=== PATIENT | female | born 1965 | race Caucasian/White ===

== ENCOUNTER → 2022-03-31 | Outpatient (CLI) | payer BC, OTHER ==
[2022-03-31 13:12] VITALS: BP 129/67; PULSE 88; TEMP 98.3; BMI 52.7
[2022-03-31 18:45] LABS: HCT 37.8 % (37.2-46.3); MCH 28.5 pg (27.0-32.0); MCHC 31.7 g/dL (32.0-37.0); MCV 89.8 fL (80.0-97.0); Mean Platelet Volume 10.1 fL (9.5-12.2); NRBC Per 100 WBC 0 /100 WBCS (0.0-0.0); Platelet Count 216 X 10*3/uL (140-440); RBC 4.21 X 10*6/uL (4.10-5.20); RDW 13.3 % (11.5-14.5); WBC 4.88 X 10*3/uL (4.50-10.00)
[2022-03-31 19:06] LABS: African American GFR (CKD) 99.9 (60.0-200.0); Albumin 4.3 g/dL (3.8-4.9); Albumin/Globulin Ratio 1.86 (1.60-3.17); Anion Gap 14.1 mmol/L (10.00-18.00); BUN/Creat Ratio 13.88 Ratio (12.00-20.00); Blood Urea Nitrogen 10.7 mg/dL (9.0-27.0); Calcium 9.2 mg/dL (8.7-10.3); Carbon Dioxide 24.4 mmol/L (20.0-27.5); Globulin 2.3 g/dL (1.6-3.3); Non-African American GFR(CKD) 86.2 (60.0-200.0); Potassium 3.6 mmol/L (3.5-5.5); Total Bilirubin 0.6 mg/dL (0.30-1.20); Total Protein 6.6 g/dL (6.2-8.2)
== END | disposition home or self-care (01) ==
LOC: BARWHC3 12:47
PROVIDERS: ATTEND Surgery
DX: E66.01 Morbid (severe) obesity due to excess calories (principal); E88.81 Metabolic syndrome and other insulin resistance; E55.9 Vitamin D deficiency, unspecified
CPT/HCPCS: 80053; 82306; 82607; 82746; 83036; 84425; 85027; 99202

== ENCOUNTER 2022-04-21 11:43 | Day surgery (SDC) | payer BC ==
[~2022-04-21 11:43] MED LIST: LACTATED RINGERS 1,000 ML IV SCH; LIDOCAINE 1% (10MG/ML) FOR IV START INTRADERMA PRN
[2022-04-21 12:05] VITALS: RESP 16; TEMP 96.8
[2022-04-21 12:24] LABS: Glucose,Whole Blood 108 mg/dL (70-110)
[2022-04-21] MEDS ORDERED: LIDOCAINE 2% INJ 20 MG/ML (2 ML VIAL) ONE (13:07)
[2022-04-21] MEDS ORDERED: PROPOFOL 10 MG/ML 20 ML VIAL IV ONE (13:07)
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
--- NOTE | 2022-04-21 13:22 | P.OP ---
Date of Procedure: 04/21/22 Preoperative Diagnosis: Morbid obesity GERD Postoperative Diagnosis: Gastritis Procedure(s) Performed: EGD Anesthesia: MAC Surgeon: Sincere Armstrong Pathology: other (antrum) Disposition: PACU Description of Procedure: Endoscopy table in the lateral position. He received IV sedation. The gastroscope placed oropharynx passed in the esophagus into the stomach. Scope was then placed through the pylorus. The first and second portion duodenum appeared normal. Scope was then brought back the antrum and this was mildly inflamed. A biopsies performed. The scope was then retroflexed and the remainder the stomach appeared normal. The GE junction was at 40 cm. The distal esophagus. Normal. The proximal esophagus appeared normal. Scope withdrawn for patient.
[2022-04-21 13:35] VITALS: BP 96/63; PULSE 65
== END 2022-04-21 13:55 | disposition home or self-care (01) ==
LOC: ORWHC2ENDO 11:43
PROVIDERS: ATTEND Surgery
DX: K21.9 Gastro-esophageal reflux disease without esophagitis (principal); K29.50 Unspecified chronic gastritis without bleeding; E66.01 Morbid (severe) obesity due to excess calories; Z68.43 Body mass index [BMI] 50.0-59.9, adult; E11.9 Type 2 diabetes mellitus without complications; E78.5 Hyperlipidemia, unspecified; I10 Essential (primary) hypertension; G47.33 Obstructive sleep apnea (adult) (pediatric); M19.012 Primary osteoarthritis, left shoulder; Z87.891 Personal history of nicotine dependence; Z87.442 Personal history of urinary calculi; Z90.49 Acquired absence of other specified parts of digestive tract; Z79.899 Other long term (current) drug therapy; Z79.84 Long term (current) use of oral hypoglycemic drugs
CPT/HCPCS: 88305; 43239; J2704; J2001

== ENCOUNTER → 2022-04-28 | Outpatient (CLI) | payer BC ==
[2022-04-28 14:28] VITALS: BP 113/79; PULSE 90; TEMP 98.3; BMI 52.0
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
== END | disposition home or self-care (01) ==
LOC: BARWHC3 13:51
PROVIDERS: ATTEND Surgery
DX: E66.01 Morbid (severe) obesity due to excess calories (principal); Z68.43 Body mass index [BMI] 50.0-59.9, adult
CPT/HCPCS: 99211

== ENCOUNTER → 2022-05-26 | Outpatient (CLI) | payer BC ==
[2022-05-26 10:50] VITALS: BMI 53.1
== END | disposition home or self-care (01) ==
LOC: BARWHC3 08:38
PROVIDERS: ATTEND Surgery
DX: E66.01 Morbid (severe) obesity due to excess calories (principal); Z71.3 Dietary counseling and surveillance
CPT/HCPCS: 97804

== ENCOUNTER → 2022-08-04 | Outpatient (CLI) | payer BC ==
[2022-08-04 13:23] VITALS: BP 109/68; PULSE 75; RESP 16; TEMP 98.1; BMI 52.4
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
== END ==
LOC: BARWHC3 12:57
PROVIDERS: ATTEND Surgery
DX: E66.01 Morbid (severe) obesity due to excess calories (principal); Z68.43 Body mass index [BMI] 50.0-59.9, adult
CPT/HCPCS: 99211

== ENCOUNTER → 2022-08-18 | Day surgery (SDC) | payer BC ==
[2022-08-13 13:12] VITALS: BMI 55.9
[~2022-08-18] MED LIST changes: +DEXAMETHASONE SOD PHOSPHATE 4 MG/ML 1 ML VIAL IV ONE; +ENOXAPARIN 40 MG/0.4 ML SYRINGE SQ PRN; +HYDROmorphone 0.5 MG/0.5 ML SYRINGE IVP PRN; -LIDOCAINE 1% (10MG/ML) FOR IV START INTRADERMA PRN; +ONDANSETRON 4 MG/2 ML VIAL IVP ONE; +ceFAZolin 3 GM in SODIUM CHLORIDE 0.9% 100 ML IVPB PRN
[2022-08-18 09:18] VITALS: BP 144/74; PULSE 78; RESP 18; TEMP 97.3
[2022-08-18 09:33] LABS: Glucose,Whole Blood 114 mg/dL (70-110)
== END ==
LOC: OR 08:42
PROVIDERS: ATTEND Surgery
DX: Z53.9 Procedure and treatment not carried out, unspecified reason (principal); E66.01 Morbid (severe) obesity due to excess calories
CPT/HCPCS: J1100; J2405; J1650

== ENCOUNTER 2022-08-19 05:51 | Observation (INO) | payer BC ==
[~2022-08-19 05:51] MED LIST changes: -DEXAMETHASONE SOD PHOSPHATE 4 MG/ML 1 ML VIAL IV ONE; -HYDROmorphone 0.5 MG/0.5 ML SYRINGE IVP PRN; -LACTATED RINGERS 1,000 ML IV SCH; -ONDANSETRON 4 MG/2 ML VIAL IVP ONE
[2022-08-19] MEDS ORDERED: ONDANSETRON 4 MG/2 ML VIAL ONE (06:29)
[2022-08-19] MEDS ORDERED: LIDOCAINE 1% (10MG/ML) FOR IV START INTRADERMA ONE (06:38)
[2022-08-19] MEDS ORDERED: LACTATED RINGERS 1,000 ML IV ONE (06:38)
[2022-08-19] MEDS ORDERED: ONDANSETRON 4 MG/2 ML VIAL IVP ONE (06:39)
[2022-08-19] MEDS ORDERED: DEXAMETHASONE SOD PHOSPHATE 4 MG/ML 1 ML VIAL IV ONE (06:40)
[2022-08-19 06:42] LABS: Glucose,Whole Blood 135 mg/dL (70-110)
[2022-08-19] MEDS ORDERED: KETAMINE 10 MG/ML 20 ML VIAL ONE (07:00)
[2022-08-19] MEDS ORDERED: MIDAZOLAM 2 MG/2 ML VIAL ONE (07:00)
[2022-08-19] MEDS ORDERED: KETOROLAC 15 MG/ML 1 ML VIAL ONE (07:00)
[2022-08-19] MEDS ORDERED: NEOSTIGMINE 1 MG/ML 10 ML VIAL ONE (07:00)
[2022-08-19] MEDS ORDERED: ROCURONIUM 10 MG/ML (5 ML VIAL) IV ONE (07:00)
[2022-08-19] MEDS ORDERED: fentaNYL (PF) 50 MCG/ML 2 ML AMP ONE (07:00)
[2022-08-19] MEDS ORDERED: PROPOFOL 10 MG/ML 20 ML VIAL IV ONE (07:00)
[2022-08-19] MEDS ORDERED: SUCCINYLCHOLINE CHLORIDE 200 MG/10 ML VIAL IV ONE (07:00)
[2022-08-19] MEDS ORDERED: GLYCOPYRROLATE 0.2 MG/ML 2 ML VIAL ONE (07:00)
[2022-08-19] MEDS ORDERED: BUPIVACAIN-EPI 0.25%-1:200,000 30 ML VIAL SQ ONE (07:24)
--- NOTE | 2022-08-19 08:02 | P.OP ---
Date of Procedure: 08/19/22 Preoperative Diagnosis: Morbid obesity, BMI 55 Postoperative Diagnosis: Morbid obesity, BMI 55 Procedure(s) Performed: Laparoscopic sleeve gastrectomy Anesthesia: CIERA Surgeon: Sincere Armstrong Estimated Blood Loss (ml): 10 Pathology: other (Stomach) Condition: stable Disposition: PACU Description of Procedure: The patient was placed on the operating room table in the supine position. She received general anesthesia and then was placed in dorsal lithotomy position. Her abdomen was prepped and draped in sterile fashion. The skin incision sites were anesthetized 1% local Xylocaine. And then the skin was incised with an 11 blade in the left lateral position. Using a blade less trocar under direct visualization the peritoneal cavity was entered. The abdomen was insufflated and then a 5 mm laparoscope was placed into the peritoneal cavity. A 5 mm trocar was placed in the right epigastric, and right lateral position. A 15 mm trocar was placed in the supra-umbilical position and another 5 mm trocar was placed in the left lateral position. The left lateral lobe of the liver was retracted. The stomach was visualized. The greater curvature of the stomach was then dissected using the Harmonic scissors. The dissection occurred approximately 5 cm from the pylorus to the level of the left josep. There was no hiatal hernia seen. At this point a 40-Amharic bougie dilator was placed the oropharynx and passed into the esophagus and into the stomach by the ENTRY LEVEL INSTALLATION TECHNICIAN. The sleeve gastrectomy was performed by using the powered echelon stapler with a seam guard buttress material. Sequential firings of the stapler were performed. The gastric remnant was then brought out through the 15 mm trocar site. The dilator was withdrawn. And a orogastric tube was replaced into the stomach. The stomach was insufflated with 200 mL of methylene blue normal saline. There was no evidence of extravasation. The abdomen was irrigated there is no bleeding seen. The Raciel-Noel device was used to close the 15 mm trocar with 0 Vicryl. Skin was closed with interrupted 3-0 Monocryl sutures once the trochars withdrawn. Dermabond dressing was applied. Patient was sent to recovery in stable condition.
[2022-08-19] MEDS ORDERED: HYOSCYAMINE ORAL DROPS 1.875 MG/15 ML BOTTLE PO PRN (08:04)
[2022-08-19] MEDS ORDERED: diphenhydrAMINE 50 MG/ML 1 ML VIAL IVP PRN (08:04)
[2022-08-19] MEDS ORDERED: ACETAMINOPHEN IV (For NPO) 1,000 MG in EMPTY BAG 1 BAG IVPB ONE (08:04)
[2022-08-19] MEDS ORDERED: NALOXONE 0.4 MG/ML 1 ML VIAL IV PRN (08:04)
[2022-08-19] MEDS ORDERED: ONDANSETRON 4 MG/2 ML VIAL IVP PRN (08:04)
[2022-08-19] MEDS ORDERED: SIMETHICONE 40 MG/0.6 ML DROPS 2,000 MG/30 ML BOTTLE PO PRN (08:04)
[2022-08-19] MEDS ORDERED: ACETAMINOPHEN ORAL SUSP 160 MG/5 ML CUP PO PRN (08:04)
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
[2022-08-19] MEDS: HYDROmorphone 0.5 MG/0.5 ML SYRINGE IVP PRN ×2 (09:18→15:53)
[2022-08-19 11:46] LABS: Glucose,Whole Blood 164 mg/dL (70-110)
[2022-08-19] MEDS: ALBUTEROL NEBULIZED 2.5 MG/3 ML INHALATION SCH ×3 (12:01→19:03)
[2022-08-19] MEDS: KETOROLAC 15 MG/ML 1 ML VIAL IVP SCH ×2 (13:16→17:39)
[2022-08-19] MEDS: 0.9% NACL WITH KCL 20 MEQ/L 1,000 ML IV SCH ×3 (13:20→21:33)
[2022-08-19] MEDS ORDERED: ceFAZolin 3 GM in SODIUM CHLORIDE 0.9% 100 ML IVPB SCH (15:00)
[2022-08-19 20:44] LABS: Glucose,Whole Blood 173 mg/dL (70-110)
[2022-08-19] MEDS: ENOXAPARIN 40 MG/0.4 ML SYRINGE SQ SCH (21:33)
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
[2022-08-20] MEDS: KETOROLAC 15 MG/ML 1 ML VIAL IVP SCH ×2 (01:46→05:47)
[2022-08-20 06:04] LABS: Glucose,Whole Blood 131 mg/dL (70-110)
[2022-08-20 07:30] VITALS: BP 116/65; RESP 18; TEMP 98.3
[2022-08-20] MEDS ORDERED: 1: THIAMINE 100 MG, FOLIC ACID 1 MG in 0.9% NACL WITH KCL 20 MEQ/L 1,000 ML 2: 0.9% NAC IVPB SCH (08:00)
[2022-08-20] MEDS: ENOXAPARIN 40 MG/0.4 ML SYRINGE SQ SCH (08:35)
[2022-08-20] MEDS: ALBUTEROL NEBULIZED 2.5 MG/3 ML INHALATION SCH ×2 (09:06→11:51)
[2022-08-20] MEDS ORDERED: FAMOTIDINE 20 MG/2 ML VIAL IV SCH (09:30)
[2022-08-20 11:22] LABS: Basophils # (A) 0.01 X 10*3/uL (0.00-0.10); Basophils % (A) 0.1 %; Eosinophils # (A) 0.01 X 10*3/uL (0.04-0.35); Eosinophils % (A) 0.1 %; HGB 11.2 g/dL (12.0-15.0); Immature Grans, Automated 0.3 %; Lymphocytes # (A) 1.97 X 10*3/uL (0.90-5.00); Lymphocytes % (A) 24.6 %; MCH 29.2 pg (27.0-32.0); MCHC 31.1 g/dL (32.0-37.0); Mean Platelet Volume 9.4 fL (9.5-12.2); Monocytes # (A) 0.41 X 10*3/uL (0.20-1.00); Monocytes % (A) 5.1 %; NRBC Per 100 WBC 0 /100 WBCS (0.0-0.0); Neutrophils # (A) 5.58 X 10*3/uL (1.80-7.70); Neutrophils % (A) 69.8 %; Platelet Count 234 X 10*3/uL (140-440); RBC 3.83 X 10*6/uL (4.10-5.20); RDW 14.5 % (11.5-14.5)
--- NOTE | 2022-08-20 11:35 | P.DS ---
Providers Date of admission: 08/19/22 18:14 Expected date of discharge: 08/20/22 Attending physician: Sincere Armstrong Consults: 08/19/22 08:04 Consult Physician Routine Consulting Provider: Nathaly London Consult Reason/Comments: med manage Do you want consulting provider notified?: Yes Primary care physician: Sonya Hsieh Hospital Course: Discharge diagnosis 1. Morbid obesity status post laparoscopic sleeve gastrectomy Hospital course This is a 56-year-old female with a known history of morbid obesity. She is status post laparoscopic sleeve gastrectomy. Patient tolerated surgery well. Her pain is controlled. She is tolerating diet. She's having flatus. She has been up and ambulating. She is urinating without difficulty. She's afebrile. She is stable for discharge. Please refer to chart for any further details. Physician Diesel Locomotive Engineer note has been reviewed by physician. Signing provider agrees with the documented findings, assessment, and plan of care. Patient Condition at Discharge: Stable Plan - Discharge Summary Discharge Rx Participant: No New Discharge Prescriptions: New bisacodyL [Dulcolax] 5 mg PO DAILY PRN #10 tab PRN Reason: Constipation Simethicone 40 mg/0.6 ml Drops [Mylicon Drops] 40 mg PO PCHS PRN #30 ml PRN Reason: Gas Ondansetron Odt [Zofran Odt] 4 mg PO Q8HR PRN #9 tab PRN Reason: Nausea HYDROcodone/APAP 5-325MG [[place] 5-325] 1 tab PO Q6HR PRN 2 Days #5 tab PRN Reason: Pain Omeprazole [PriLOSEC] 40 mg PO DAILY #30 cap Continue metFORMIN HCL [Glucophage] 500 mg PO BID Multivitamin [Multivitamins Adult Gummies] 1 each PO DAILY Simvastatin 40 mg PO DAILY Semaglutide [Ozempic] 1 mg SQ SWAN Discontinued Lisinopril-Hctz 10-12.5 mg [Zestoretic 10-12.5] 1 tab PO DAILY Ibuprofen [Motrin] 400 mg PO Q6HR PRN PRN Reason: Pain Discharge Medication List Simvastatin 40 mg PO DAILY 03/31/22 [History] metFORMIN HCL [Glucophage] 500 mg PO BID 03/31/22 [History] Semaglutide [Ozempic] 1 mg SQ SWAN 04/18/22 [History] Multivitamin [Multivitamins Adult Gummies] 1 each PO DAILY 08/13/22 [History] HYDROcodone/APAP 5-325MG [[place] 5-325] 1 tab PO Q6HR PRN 2 Days #5 tab 08/20/22 [Rx] Omeprazole [PriLOSEC] 40 mg PO DAILY #30 cap 08/20/22 [Rx] Ondansetron Odt [Zofran Odt] 4 mg PO Q8HR PRN #9 tab 08/20/22 [Rx] Simethicone 40 mg/0.6 ml Drops [Mylicon Drops] 40 mg PO PCHS PRN #30 ml 08/20/22 [Rx] bisacodyL [Dulcolax] 5 mg PO DAILY PRN #10 tab 08/20/22 [Rx] [place] [facility]s[place]Ref[place] [facility] [place] 1 Week Sonya Hsieh DO [Primary Care Provider] - 3 Days Activity/Diet/Wound Care/Special Instructions: No driving while taking [place] No lifting over 10 pounds Shower daily. No soaking or tub baths for 2 weeks Very light activity until you are reevaluated at your follow up appointment with your surgeon No straws or carbonated beverages Hold blood pressure medication until seen by PCP Discharge Disposition: HOME SELF-CARE
[2022-08-20 12:00] VITALS: PULSE 70
[2022-08-20 12:07] LABS: African American GFR (CKD) 82.8 (60.0-200.0); BUN/Creat Ratio 15.56 Ratio (12.00-20.00); Calcium 8.5 mg/dL (8.7-10.3); Carbon Dioxide 24.2 mmol/L (20.0-27.5); Chloride 101 mmol/L (96-109); Glucose 121 mg/dL (70-110); Non-African American GFR(CKD) 71.5 (60.0-200.0); Phosphorus 3.7 mg/dL (2.4-5.1); Potassium 4.2 mmol/L (3.5-5.5); Sodium 139 mmol/L (135-145)
[2022-08-20 12:20] LABS: Glucose,Whole Blood 136 mg/dL (70-110)
[2022-08-20 12:57] VITALS: BMI 54.7
== END 2022-08-20 13:02 | disposition home or self-care (01) ==
LOC: OR 05:51 → 4SSUR 08:04 → OR 17:57 → 4SSUR 18:14
PROVIDERS: ADMIT Surgery; ATTEND Surgery
DX: E66.01 Morbid (severe) obesity due to excess calories (principal); K29.50 Unspecified chronic gastritis without bleeding; E11.9 Type 2 diabetes mellitus without complications; E78.5 Hyperlipidemia, unspecified; I10 Essential (primary) hypertension; R00.1 Bradycardia, unspecified; Z90.49 Acquired absence of other specified parts of digestive tract; Z68.43 Body mass index [BMI] 50.0-59.9, adult; Z87.891 Personal history of nicotine dependence; Z79.899 Other long term (current) drug therapy; Z79.84 Long term (current) use of oral hypoglycemic drugs
CPT/HCPCS: 43775; 96376; 96372 ×2; 96374; 94640 ×4; 94760; 93005; 97161; 97166; 80048; 84443; 83735; 84100; 85025; 88307; G0378 ×2; J2250; J0330; J1100; J2710; J0690; J2405; J1650 ×2; J3010; J0131; J1885 ×2; J2704; J1170

== ENCOUNTER → 2022-09-01 | Outpatient (CLI) | payer BC ==
[2022-09-01 13:11] VITALS: BP 137/80; PULSE 85; TEMP 98.1; BMI 48.5
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
== END ==
LOC: BARWHC3 12:47
PROVIDERS: ATTEND Surgery
DX: Z71.3 Dietary counseling and surveillance (principal); E66.01 Morbid (severe) obesity due to excess calories; Z68.42 Body mass index [BMI] 45.0-49.9, adult
CPT/HCPCS: 97802; 99211

== ENCOUNTER → 2022-09-22 | Outpatient (CLI) | payer BC ==
[2022-09-22 14:30] VITALS: BP 120/80; PULSE 60; TEMP 98.3; BMI 46.0
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
[2022-09-22 22:52] LABS: HCT 40.5 % (37.2-46.3); HGB 13.4 g/dL (12.0-15.0); MCH 29.1 pg (27.0-32.0); MCHC 33.1 g/dL (32.0-37.0); MCV 87.9 fL (80.0-97.0); Mean Platelet Volume 11.4 fL (9.5-12.2); NRBC Per 100 WBC 0 /100 WBCS (0.0-0.0); Platelet Count 196 X 10*3/uL (140-440); RBC 4.61 X 10*6/uL (4.10-5.20); RDW 14.6 % (11.5-14.5); WBC 4.66 X 10*3/uL (4.50-10.00)
[2022-09-22 23:18] LABS: % Iron Saturation 13.78 (12.00-45.00); African American GFR (CKD) 93.8 (60.0-200.0); Albumin 4.1 g/dL (3.8-4.9); Albumin/Globulin Ratio 1.77 (1.60-3.17); BUN/Creat Ratio 6.23 Ratio (12.00-20.00); Blood Urea Nitrogen 5.1 mg/dL (9.0-27.0); Calcium 9.5 mg/dL (8.7-10.3); Carbon Dioxide 24.2 mmol/L (20.0-27.5); Globulin 2.3 g/dL (1.6-3.3); Magnesium 1.9 mg/dL (1.5-2.4); Potassium 3.6 mmol/L (3.5-5.5); Total Bilirubin 0.7 mg/dL (0.30-1.20); Total Protein 6.4 g/dL (6.2-8.2)
== END ==
LOC: BARWHC3 13:52
PROVIDERS: ATTEND Surgery
DX: Z48.815 Encounter for surgical aftercare following surgery on the digestive system (principal); E66.01 Morbid (severe) obesity due to excess calories; Z98.84 Bariatric surgery status; E11.9 Type 2 diabetes mellitus without complications; E78.5 Hyperlipidemia, unspecified; I10 Essential (primary) hypertension; M19.90 Unspecified osteoarthritis, unspecified site; Z68.42 Body mass index [BMI] 45.0-49.9, adult
CPT/HCPCS: 80053; 82306; 82607; 82746; 83540; 83550; 83735; 84255; 84425; 84443; 84590; 84630; 85027; 97803; 99211

== ENCOUNTER 2022-10-05 11:36 | Emergency (ER) | payer BC ==
[2022-10-05 11:42] VITALS: TEMP 98.4
[2022-10-05] MEDS ORDERED: PANTOPRAZOLE 40 MG/10 ML VIAL IVP STA (12:24)
[2022-10-05] MEDS ORDERED: IOPAMIDOL CONTRAST (ORAL USE) VIAL PO PRN (12:24)
[2022-10-05] MEDS ORDERED: ONDANSETRON 4 MG/2 ML VIAL IVP STA (12:24)
[2022-10-05] MEDS ORDERED: SODIUM CHLORIDE 0.9% 2,000 ML IV STA (12:24)
[2022-10-05] MEDS ORDERED: HYDROmorphone 0.5 MG/0.5 ML SYRINGE IVP STA (12:25)
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
[2022-10-05 12:49] LABS: Basophils % (A) 0 %; Eosinophils % (A) 0 %; HCT 41.1 % (34.0-46.0); Lymphocytes # (A) 0.9 k/uL (1.0-4.8); Lymphocytes % (A) 12 %; MCH 30.1 pg (25.0-35.0); MCHC 34.2 g/dL (31.0-37.0); MCV 88.1 fL (80.0-100.0); Mean Platelet Volume 8.4; Monocytes # (A) 0.2 k/uL (0-1.0); Monocytes % (A) 3 %; Neutrophils # (A) 6.2 k/uL (1.3-7.7); Neutrophils % (A) 83 %; Platelet Count 207 k/uL (150-450); RBC 4.66 m/uL (3.80-5.40); WBC 7.5 k/uL (3.8-10.6)
[2022-10-05 13:12] LABS: Albumin 4.5 g/dL (3.5-5.0); Calcium 9.4 mg/dL (8.4-10.2); Total Bilirubin 1.4 mg/dL (0.2-1.3); Total Protein 7.3 g/dL (6.3-8.2)
--- NOTE | 2022-10-05 13:54 | CT ---
EXAMINATION TYPE: CT abdomen pelvis w con CT DLP: 2218.7 mGycm, Automated exposure control for dose reduction was used. DATE OF EXAM: 10/05/2022 1:44 PM COMPARISON: None CLINICAL INDICATION:Female, 56 years old with history of abdominal pain; Abdominal pain TECHNIQUE: Axial CT of the abdomen and pelvis. Sagittal and coronal reformats were created on a [employer] workstation. Contrast used:100 ml mL of Isovue 300 with IV Contrast, Oral contrast used: with Oral Contrast FINDINGS: LOWER CHEST: Heart is mildly enlarged for size. ABDOMEN LIVER: Diffusely hypoattenuating parenchyma. GALLBLADDER AND BILE DUCTS: The gallbladder is surgically absent. PANCREAS: Unremarkable. SPLEEN: Unremarkable. ADRENAL GLANDS: Unremarkable. KIDNEYS AND URETERS: No evidence of hydronephrosis or renal calculus. The ureters are unremarkable. PELVIS BLADDER: Unremarkable REPRODUCTIVE: Unremarkable. ABDOMEN & PELVIS STOMACH AND BOWEL: No evidence of bowel obstruction. Surgical changes to the gastric lumen. Appendix is normal. PERITONEUM: No evidence of pneumoperitoneum or free fluid. VASCULATURE: No evidence of aortic aneurysm. Mild atherosclerosis of the arterial vasculature. Mild m ultilevel disc degeneration changes throughout the spine. MUSCULOSKELETAL: No acute osseous abnormalities LYMPH NODES: No gross evidence for lymphadenopathy. SOFT TISSUE/ABDOMINAL WALL: Small fat-containing umbilical hernia. IMPRESSION: 1. No evidence for acute intra-abdominal process. 2. Hepatic steatosis.
[2022-10-05] MEDS ORDERED: MAG HYDROX/AL HYDROX/SIMETH 30 ML, HYOSCYAMINE ELIXIR 10 ML, LIDOCAINE VISCOUS 2% 10 ML PO STA ×3 (14:13)
[2022-10-05] MEDS ORDERED: METOCLOPRAMIDE 5 MG/ML 2 ML VIAL IVP STA (14:14)
[2022-10-05] MEDS ORDERED: diphenhydrAMINE 50 MG/ML 1 ML VIAL IVP STA (14:14)
[2022-10-05 14:20] LABS: Appearance,Urine Clear (Clear); Bilirubin,Urine 1+ (Negative); Blood,Urine Negative (Negative); Color,Urine Yellow; Glucose,Urine (UA) Negative (Negative); Ketones,Urine 4+ (Negative); Leukocyte Esterase,Urine Negative (Negative); Mucus,Urine Few /hpf; Nitrite,Urine Negative (Negative); Protein,Urine 1+ (Negative); RBC,Urine 3 /hpf (0-5); Squamous Epithelial Cell,Urine 14 /hpf (0-4); WBC,Urine 2 /hpf (0-5)
[2022-10-05 14:46] LABS: Specific Gravity,Urine >1.050 (1.001-1.035)
[2022-10-05 15:31] VITALS: BP 138/71; PULSE 65; RESP 18
== END 2022-10-05 15:35 | disposition home or self-care (01) ==
LOC: EC 11:36
DX: Z98.84 Bariatric surgery status (principal); E86.0 Dehydration; R11.2 Nausea with vomiting, unspecified; E11.9 Type 2 diabetes mellitus without complications; I10 Essential (primary) hypertension; Z87.891 Personal history of nicotine dependence
CPT/HCPCS: 36415; 80053; 83605; 83690; 85025; 81001; 74177; 99284; 96374; 96375 ×4; 96361 ×2; J1200; J2765; J2405; C9113; J1170; Q9967

== ENCOUNTER 2022-10-06 09:02 | Inpatient (IN) | payer BC ==
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
[2022-10-06 09:45] LABS: Basophils % (A) 0 %; Eosinophils # (A) 0.1 k/uL (0-0.7); Eosinophils % (A) 1 %; HCT 40.6 % (34.0-46.0); HGB 13.5 gm/dL (11.4-16.0); Lymphocytes % (A) 14 %; MCH 29.7 pg (25.0-35.0); MCHC 33.4 g/dL (31.0-37.0); MCV 88.8 fL (80.0-100.0); Mean Platelet Volume 8.1; Monocytes # (A) 0.2 k/uL (0-1.0); Monocytes % (A) 2 %; Neutrophils # (A) 5.9 k/uL (1.3-7.7); Neutrophils % (A) 82 %; Platelet Count 188 k/uL (150-450); RBC 4.56 m/uL (3.80-5.40); RDW 14.7 % (11.5-15.5); WBC 7.1 k/uL (3.8-10.6)
[2022-10-06 10:11] LABS: ALT 89 U/L (4-34); AST 67 U/L (14-36); African American GFR (CKD) >90 (>60 ml/min/1.73 sqM); Albumin 4.1 g/dL (3.5-5.0); Alkaline Phosphatase 109 U/L (38-126); Anion Gap 13 mmol/L; Blood Urea Nitrogen 13 mg/dL (7-17); Calcium 8.8 mg/dL (8.4-10.2); Carbon Dioxide 23 mmol/L (22-30); Chloride 105 mmol/L (98-107); Glucose 169 mg/dL (74-99); Lipase 117 U/L (23-300); Non-African American GFR(CKD) 89 (>60 ml/min/1.73 sqM); Potassium 3.6 mmol/L (3.5-5.1); Sodium 141 mmol/L (137-145); Total Bilirubin 1.3 mg/dL (0.2-1.3); Total Protein 6.7 g/dL (6.3-8.2)
[2022-10-06] MEDS ORDERED: METOCLOPRAMIDE 5 MG/ML 2 ML VIAL IVP STA (10:17)
[2022-10-06] MEDS ORDERED: HYDROmorphone 0.5 MG/0.5 ML SYRINGE IVP STA (10:17)
[2022-10-06] MEDS ORDERED: diphenhydrAMINE 50 MG/ML 1 ML VIAL IVP STA (10:17)
[2022-10-06] MEDS ORDERED: SODIUM CHLORIDE 0.9% 2,000 ML IV ONE (10:17)
[2022-10-06] MEDS ORDERED: FAMOTIDINE 20 MG/2 ML VIAL IV STA (10:18)
[2022-10-06 10:49] LABS: Amorphous Sediment,Urine Rare /hpf; Appearance,Urine Cloudy (Clear); Bacteria,Urine Few /hpf; Bilirubin,Urine 1+ (Negative); Blood,Urine Negative (Negative); Color,Urine Yellow; Glucose,Urine (UA) Trace (Negative); Ketones,Urine 3+ (Negative); Leukocyte Esterase,Urine Small (Negative); Mucus,Urine Many /hpf; Nitrite,Urine Negative (Negative); Protein,Urine 2+ (Negative); RBC,Urine 2 /hpf (0-5); Specific Gravity,Urine 1.039 (1.001-1.035); Squamous Epithelial Cell,Urine 43 /hpf (0-4); WBC,Urine 12 /hpf (0-5)
[2022-10-06] MEDS ORDERED: NALOXONE 0.4 MG/ML 1 ML VIAL IV PRN ×2 (13:14→13:57)
[2022-10-06] MEDS: SODIUM CHLORIDE 0.9% 1,000 ML IV SCH (13:34)
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
--- NOTE | 2022-10-06 14:56 | XR ---
EXAMINATION TYPE: XR abdomen 1V DATE OF EXAM: 10/06/2022 COMPARISON: NONE HISTORY: Pain and vomiting TECHNIQUE: One view abdominal series FINDINGS: The osseous structures are intact. The bowel gas pattern is nonspecific. Lung bases are clear. Surg ical clips in the epigastrium. Degenerative changes lower lumbar spine. Contrast within bowel noted. IMPRESSION: 1. Nonspecific abdomen.
[2022-10-06] MEDS: ONDANSETRON 4 MG/2 ML VIAL IVP PRN (16:13)
[2022-10-06] MEDS: INSULIN ASPART (NovoLOG) 100 UNIT/ML VIAL SQ SCH ×2 (18:52→20:51)
[2022-10-06 20:35] LABS: Glucose,Whole Blood 125 mg/dL (70-110)
[2022-10-06] MEDS ORDERED: MORPHINE SULFATE 2 MG/ML SYRINGE IVP STA (20:47)
[2022-10-07] MEDS: SODIUM CHLORIDE 0.9% 1,000 ML IV SCH ×2 (00:02→16:52)
[2022-10-07] MEDS: ONDANSETRON 4 MG/2 ML VIAL IVP PRN ×3 (00:02→15:54)
[2022-10-07 06:09] LABS: Glucose,Whole Blood 124 mg/dL (70-110)
[2022-10-07] MEDS: INSULIN ASPART (NovoLOG) 100 UNIT/ML VIAL SQ SCH ×4 (06:11→20:53)
[2022-10-07 08:05] LABS: Basophils % (A) 0 %; Eosinophils % (A) 0 %; HCT 39.5 % (34.0-46.0); HGB 12.7 gm/dL (11.4-16.0); Hypochromasia Slight; Lymphocytes # (A) 1.1 k/uL (1.0-4.8); Lymphocytes % (A) 18 %; MCH 29.8 pg (25.0-35.0); MCHC 32.1 g/dL (31.0-37.0); MCV 92.8 fL (80.0-100.0); Mean Platelet Volume 8.8; Monocytes # (A) 0.3 k/uL (0-1.0); Monocytes % (A) 5 %; Neutrophils # (A) 4.3 k/uL (1.3-7.7); Neutrophils % (A) 76 %; Platelet Count 174 k/uL (150-450); RBC 4.26 m/uL (3.80-5.40); RDW 14.6 % (11.5-15.5); WBC 5.7 k/uL (3.8-10.6)
[2022-10-07 08:55] LABS: ALT 110 U/L (4-34); African American GFR (CKD) >90 (>60 ml/min/1.73 sqM); Anion Gap 7 mmol/L; Blood Urea Nitrogen 13 mg/dL (7-17); Calcium 8.4 mg/dL (8.4-10.2); Carbon Dioxide 29 mmol/L (22-30); Chloride 107 mmol/L (98-107); Glucose 125 mg/dL (74-99); Non-African American GFR(CKD) >90 (>60 ml/min/1.73 sqM); Sodium 143 mmol/L (137-145); Total Bilirubin 1.7 mg/dL (0.2-1.3); Total Protein 6.7 g/dL (6.3-8.2)
[2022-10-07 08:56] LABS: AST 98 U/L (14-36); Alkaline Phosphatase 94 U/L (38-126); Magnesium 2.3 mg/dL (1.6-2.3); Phosphorus 3.5 mg/dL (2.5-4.5); Potassium 4.5 mmol/L (3.5-5.1)
[2022-10-07] MEDS ORDERED: lisinopriL 5 MG TAB PO SCH (09:00)
[2022-10-07] MEDS: lisinopriL 10 MG TAB PO SCH (09:16)
[2022-10-07] MEDS: PANTOPRAZOLE 40 MG/10 ML VIAL IVP SCH (11:51)
[2022-10-07] MEDS: KETOROLAC 15 MG/ML 1 ML VIAL IVP SCH ×2 (11:51→17:59)
[2022-10-07] MEDS: ACETAMINOPHEN IV (For NPO) 1,000 MG in EMPTY BAG 1 BAG IVPB SCH ×2 (11:52→17:59)
[2022-10-07 11:54] LABS: Glucose,Whole Blood 121 mg/dL (70-110)
--- NOTE | 2022-10-07 11:54 | FL ---
EXAMINATION TYPE: FL UGI w esophagus DATE OF EXAM: 10/07/2022 LIMITED UGI: CLINICAL HISTORY: Gastric sleeve surgery roughly 7 weeks ago with increasing dysphagia over the last 1-2 weeks. Worsening nausea and vomiting along with abdominal pain. TECHNIQUE: Limited UGI is performed utilizing 20 oz of thin liquid barium. A total of 58 seconds of fluoroscopic time was utilized during procedure and 17 images obtained. COMPARISON: CT abdomen and pelvis from 2 days ago FINDINGS: Preprocedure driftman image redemonstrates surgical clips and sutures in the epigastric region from prior gastric sleeve surgery. Cholecystectomy clips are redemonstrated. The patient swallowed contrast with some difficulty due to nausea. Esophageal peristalsis and motili ty are within normal limits. There is good flow of contrast along the diaphragmatic hiatus into prox imal stomach and subsequent flow into gastric sleeve through proximal anastomosis. There is mild gloria y in flow from distal sleeve and anastomosis into pylorus and duodenal sweep. Patient showed nausea b ut no vomiting. There is no evidence of contrast extravasation to suggest leak. IMPRESSION: No evidence of leak or significant obstruction.
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
--- NOTE | 2022-10-07 15:38 | P.PN ---
Subjective Progress Note Date: 10/07/22 Patient seen and examined at bedside. Patient continues to have nausea and vomiting with epigastric pain. Patient denies chest pain shortness of breath. Awaiting surgery consultation. Objective - Vital Signs Vital signs: Vital Signs Temp 97.8 F 10/07/22 09:15 Pulse 41 L 10/07/22 11:55 Resp 17 10/07/22 11:55 BP 154/82 10/07/22 11:55 Pulse Ox 97 10/07/22 11:55 FiO2 Intake & Output 10/06/22 10/07/22 10/07/22 18:59 06:59 18:59 Intake Total 240 Balance 240 Weight 110.677 kg 110.677 kg Intake: Oral 240 Other: # Voids 2 - Exam General: [non toxic], [no distress], [appears at stated age] Derm: [warm], [dry] Head: [atraumatic], [normocephalic], [symmetric] Eyes: [EOMI], [no lid lag], [anicteric sclera] Mouth: [no lip lesion], [mucus membranes moist] Cardiovascular: [S1S2 reg], [no murmur], [positive posterior tibial pulse bilateral], Lungs: [CTA bilateral], [no rhonchi, no rales] , [no accessory muscle use] Abdominal: [soft], [ epigastric tender to palpation], [no guarding], [no appreciable organomegaly] Ext: [no gross muscle atrophy], [no edema], [no contractures] Neuro: [ CN II-XI grossly intact], [no focal neuro deficits] Psych: [Alert], [oriented], [appropriate affect] - Labs CBC & Chem 7: 10/07/22 06:04 10/07/22 06:04 Labs: Abnormal Lab Results - Last 24 Hours (Table) 10/06/22 10/07/22 10/07/22 Range/Units 20:33 06:04 06:07 Glucose 125 H (74-99) mg/dL POC Glucose (mg/dL) 125 H 124 H (70-110) mg/dL Total Bilirubin 1.7 H (0.2-1.3) mg/dL AST 98 H (14-36) U/L ALT 110 H (4-34) U/L 10/07/22 Range/Units 11:52 Glucose (74-99) mg/dL POC Glucose (mg/dL) 121 H (70-110) mg/dL Total Bilirubin (0.2-1.3) mg/dL AST (14-36) U/L ALT (4-34) U/L Microbiology - Last 24 Hours (Table) 10/06/22 10:23 Urine Culture - Final Urine,Voided Assessment and Plan Assessment: Sinus bradycardia Troponin negative, no heart history in the past Monitor on telemetry Likely sec to dehydration, give IV fluids Cardiology recommendations appreciated Intractable nausea and vomiting with recent gastric sleeve Nothing by mouth general surgery recommendations appreciated Zofran and reglan IV fluids Type 2 diabetes SSI Hold ozympic History of hypertension All stable Resume meds Admit to inpatient expected length of stay more than 2 midnights. Time with Patient: Greater than 30
[2022-10-07 16:49] LABS: Glucose,Whole Blood 125 mg/dL (70-110)
[2022-10-07 20:32] LABS: Glucose,Whole Blood 116 mg/dL (70-110)
[2022-10-07] MEDS: DEXAMETHASONE SOD PHOSPHATE 4 MG/ML 1 ML VIAL IVP SCH (20:55)
[2022-10-08] MEDS: ACETAMINOPHEN IV (For NPO) 1,000 MG in EMPTY BAG 1 BAG IVPB SCH ×2 (00:17→06:33)
[2022-10-08] MEDS: KETOROLAC 15 MG/ML 1 ML VIAL IVP SCH ×5 (00:18→23:28)
[2022-10-08] MEDS: ONDANSETRON 4 MG/2 ML VIAL IVP PRN ×4 (00:19→23:28)
[2022-10-08] MEDS: SODIUM CHLORIDE 0.9% 1,000 ML IV SCH ×2 (00:49→16:13)
[2022-10-08] MEDS: DEXAMETHASONE SOD PHOSPHATE 4 MG/ML 1 ML VIAL IVP SCH ×3 (04:30→20:32)
[2022-10-08] MEDS: INSULIN ASPART (NovoLOG) 100 UNIT/ML VIAL SQ SCH ×4 (06:31→20:30)
[2022-10-08 06:32] LABS: Glucose,Whole Blood 124 mg/dL (70-110)
[2022-10-08] MEDS: lisinopriL 10 MG TAB PO SCH (09:36)
[2022-10-08] MEDS: PANTOPRAZOLE 40 MG/10 ML VIAL IVP SCH ×2 (09:36→20:33)
[2022-10-08 09:45] LABS: Basophils % (A) 0 %; Eosinophils % (A) 0 %; HCT 37.2 % (34.0-46.0); HGB 12.4 gm/dL (11.4-16.0); Lymphocytes # (A) 0.8 k/uL (1.0-4.8); Lymphocytes % (A) 19 %; MCHC 33.4 g/dL (31.0-37.0); MCV 89.7 fL (80.0-100.0); Mean Platelet Volume 8.3; Monocytes # (A) 0.1 k/uL (0-1.0); Monocytes % (A) 3 %; Neutrophils # (A) 3.3 k/uL (1.3-7.7); Neutrophils % (A) 78 %; Platelet Count 133 k/uL (150-450); RBC 4.14 m/uL (3.80-5.40); RDW 14.5 % (11.5-15.5); WBC 4.2 k/uL (3.8-10.6)
[2022-10-08 09:59] LABS: ALT 153 U/L (4-34); AST 116 U/L (14-36); African American GFR (CKD) >90 (>60 ml/min/1.73 sqM); Albumin 3.5 g/dL (3.5-5.0); Alkaline Phosphatase 91 U/L (38-126); Anion Gap 7 mmol/L; Blood Urea Nitrogen 12 mg/dL (7-17); Calcium 8.1 mg/dL (8.4-10.2); Carbon Dioxide 25 mmol/L (22-30); Chloride 107 mmol/L (98-107); Glucose 127 mg/dL (74-99); Magnesium 2.3 mg/dL (1.6-2.3); Non-African American GFR(CKD) >90 (>60 ml/min/1.73 sqM); Potassium 3.7 mmol/L (3.5-5.1); Sodium 139 mmol/L (137-145); Total Bilirubin 1.9 mg/dL (0.2-1.3)
[2022-10-08 11:26] LABS: Glucose,Whole Blood 127 mg/dL (70-110)
--- NOTE | 2022-10-08 13:47 | P.PN ---
Subjective Progress Note Date: 10/08/22 Patient seen and examined at bedside. Patient continues to have epigastric pain with nausea. Patient denies chest pain or shortness of breath. Objective - Vital Signs Vital signs: Vital Signs Temp 98.1 F 10/08/22 11:17 Pulse 41 L 10/08/22 11:17 Resp 16 10/08/22 11:17 BP 148/79 10/08/22 11:17 Pulse Ox 97 10/08/22 11:17 FiO2 Intake & Output 10/07/22 10/08/22 10/08/22 18:59 06:59 18:59 Intake Total 480 Balance 480 Intake: Oral 480 Other: # Voids 3 1 - Exam General: [non toxic], [no distress], [appears at stated age] Derm: [warm], [dry] Head: [atraumatic], [normocephalic], [symmetric] Eyes: [EOMI], [no lid lag], [anicteric sclera] Mouth: [no lip lesion], [mucus membranes moist] Cardiovascular: [S1S2 reg], [no murmur], [positive posterior tibial pulse bilateral], Lungs: [CTA bilateral], [no rhonchi, no rales] , [no accessory muscle use] Abdominal: [soft], [ epigastric tender to palpation], [no guarding], [no appreciable organomegaly] Ext: [no gross muscle atrophy], [no edema], [no contractures] Neuro: [ CN II-XI grossly intact], [no focal neuro deficits] Psych: [Alert], [oriented], [appropriate affect]. - Labs CBC & Chem 7: 10/08/22 08:57 10/08/22 08:57 Labs: Abnormal Lab Results - Last 24 Hours (Table) 10/07/22 10/07/22 10/08/22 Range/Units 16:45 20:30 06:30 Plt Count (150-450) k/uL Lymphocytes # (1.0-4.8) k/uL Glucose (74-99) mg/dL POC Glucose (mg/dL) 125 H 116 H 124 H (70-110) mg/dL Calcium (8.4-10.2) mg/dL Total Bilirubin (0.2-1.3) mg/dL AST (14-36) U/L ALT (4-34) U/L Total Protein (6.3-8.2) g/dL 10/08/22 10/08/22 10/08/22 Range/Units 08:57 08:57 11:25 Plt Count 133 L (150-450) k/uL Lymphocytes # 0.8 L (1.0-4.8) k/uL Glucose 127 H (74-99) mg/dL POC Glucose (mg/dL) 127 H (70-110) mg/dL Calcium 8.1 L (8.4-10.2) mg/dL Total Bilirubin 1.9 H (0.2-1.3) mg/dL AST 116 H (14-36) U/L ALT 153 H (4-34) U/L Total Protein 6.0 L (6.3-8.2) g/dL Microbiology - Last 24 Hours (Table) 10/06/22 10:23 Urine Culture - Final Urine,Voided Assessment and Plan Assessment: Sinus bradycardia Troponin negative, no heart history in the past Monitor on telemetry Likely sec to dehydration, give IV fluids Cardiology recommendations appreciated Intractable nausea and vomiting with recent gastric sleeve Nothing by mouth general surgery recommendations appreciated Zofran and reglan IV fluids Type 2 diabetes SSI Hold ozympic History of hypertension All stable Resume meds Admit to inpatient expected length of stay more than 2 midnights
--- NOTE | 2022-10-08 14:12 | P.PN ---
Subjective Progress Note Date: 10/08/22 CHIEF COMPLAINT: Intractable nausea and vomiting HISTORY OF PRESENT ILLNESS: Patient continues to have dysphagia for nausea and vomiting. Computed tomography scan an esophagram showed no definite abnorma lities. Patient is currently on IV Protonix and Decadron with no improvement in her symptoms. She continues to have epigastric pain. Afebrile. Bradycardia, rate 41 WBC is 4.2 hgb 12.4 platelets 133 sodium 139 potassium 3.7 creatinine 0.6 magnesium is 2.3 total bili 1.9 AST 116 ALT 153 PHYSICAL EXAM: VITAL SIGNS: Reviewed. GENERAL: Well-developed in no acute distress. HEENT: No sclera icterus. Extraocular movements grossly intact. Moist buccal mucosa. Head is atraumatic, normocephalic. ABDOMEN: Soft. Nondistended. Epigastric tenderness: Alert and oriented. Cranial nerves II through XII grossly intact. ASSESSMENT: 1. Intractable nausea and vomiting with epigastric pain 2. Dehydration 3. Status post laparoscopic sleeve gastrectomy on 08/19/2022 4. Bradycardia evaluated by cardiology 5. Elevated LFTs with history of cholecystectomy and hepatic steatosis PLAN: -Further recommendations forthcoming per surgeon -Continue IV fluids -Continue antiemetics -IV Protonix increased to twice a day -Continue Decadron -Keep patient nothing by mouth except for ice chips Physician Comsec Manager note has been reviewed by physician. Signing provider agrees with the documented findings, assessment, and plan of care. I have personally seen and examined the patient, reviewed the WAIST PLEATER /PAs history, exam and MDM and agree with the assessment and plan as written. Based on total visit time, I have performed more than 50% of the visit. As above: Patient feels slightly better than yesterday. Continue Decadron IV. Begin full liquids to see if the consistency and weight of the food help some with her symptoms. Objective - Vital Signs Vital signs: Vital Signs Temp 98.1 F 10/08/22 11:17 Pulse 41 L 10/08/22 11:17 Resp 16 10/08/22 11:17 BP 148/79 10/08/22 11:17 Pulse Ox 97 10/08/22 11:17 FiO2 Intake & Output 10/07/22 10/08/22 10/08/22 18:59 06:59 18:59 Intake Total 480 Balance 480 Intake: Oral 480 Other: # Voids 3 1 - Labs CBC & Chem 7: 10/08/22 08:57 10/08/22 08:57 Labs: Abnormal Lab Results - Last 24 Hours (Table) 10/07/22 10/07/22 10/08/22 Range/Units 16:45 20:30 06:30 Plt Count (150-450) k/uL Lymphocytes # (1.0-4.8) k/uL Glucose (74-99) mg/dL POC Glucose (mg/dL) 125 H 116 H 124 H (70-110) mg/dL Calcium (8.4-10.2) mg/dL Total Bilirubin (0.2-1.3) mg/dL AST (14-36) U/L ALT (4-34) U/L Total Protein (6.3-8.2) g/dL 10/08/22 10/08/22 10/08/22 Range/Units 08:57 08:57 11:25 Plt Count 133 L (150-450) k/uL Lymphocytes # 0.8 L (1.0-4.8) k/uL Glucose 127 H (74-99) mg/dL POC Glucose (mg/dL) 127 H (70-110) mg/dL Calcium 8.1 L (8.4-10.2) mg/dL Total Bilirubin 1.9 H (0.2-1.3) mg/dL AST 116 H (14-36) U/L ALT 153 H (4-34) U/L Total Protein 6.0 L (6.3-8.2) g/dL Microbiology - Last 24 Hours (Table) 10/06/22 10:23 Urine Culture - Final Urine,Voided
[2022-10-08 16:41] LABS: Glucose,Whole Blood 121 mg/dL (70-110)
[2022-10-08 20:13] LABS: Glucose,Whole Blood 111 mg/dL (70-110)
[2022-10-09] MEDS: DEXAMETHASONE SOD PHOSPHATE 4 MG/ML 1 ML VIAL IVP SCH ×3 (04:02→20:42)
[2022-10-09] MEDS: SODIUM CHLORIDE 0.9% 1,000 ML IV SCH (04:02)
[2022-10-09 06:14] LABS: Glucose,Whole Blood 118 mg/dL (70-110)
[2022-10-09] MEDS: INSULIN ASPART (NovoLOG) 100 UNIT/ML VIAL SQ SCH ×4 (06:17→21:43)
[2022-10-09] MEDS: KETOROLAC 15 MG/ML 1 ML VIAL IVP SCH ×4 (06:19→23:08)
[2022-10-09] MEDS: ONDANSETRON 4 MG/2 ML VIAL IVP PRN ×3 (06:20→18:08)
[2022-10-09] MEDS: lisinopriL 10 MG TAB PO SCH (08:36)
[2022-10-09] MEDS: PANTOPRAZOLE 40 MG/10 ML VIAL IVP SCH ×2 (08:36→20:43)
[2022-10-09 09:01] LABS: Basophils % (A) 0 %; Eosinophils % (A) 1 %; HCT 37.3 % (34.0-46.0); HGB 12.3 gm/dL (11.4-16.0); Lymphocytes # (A) 0.8 k/uL (1.0-4.8); Lymphocytes % (A) 19 %; MCH 29.5 pg (25.0-35.0); MCV 89.5 fL (80.0-100.0); Mean Platelet Volume 9.2; Monocytes # (A) 0.2 k/uL (0-1.0); Monocytes % (A) 4 %; Neutrophils # (A) 3.4 k/uL (1.3-7.7); Neutrophils % (A) 76 %; Platelet Count 138 k/uL (150-450); RBC 4.17 m/uL (3.80-5.40); RDW 14.2 % (11.5-15.5); WBC 4.4 k/uL (3.8-10.6)
[2022-10-09 09:26] LABS: ALT 148 U/L (4-34); AST 80 U/L (14-36); African American GFR (CKD) >90 (>60 ml/min/1.73 sqM); Albumin 3.5 g/dL (3.5-5.0); Alkaline Phosphatase 88 U/L (38-126); Anion Gap 8 mmol/L; Blood Urea Nitrogen 12 mg/dL (7-17); Calcium 7.9 mg/dL (8.4-10.2); Carbon Dioxide 25 mmol/L (22-30); Chloride 102 mmol/L (98-107); Glucose 129 mg/dL (74-99); Non-African American GFR(CKD) >90 (>60 ml/min/1.73 sqM); Potassium 3.5 mmol/L (3.5-5.1); Sodium 135 mmol/L (137-145); Total Bilirubin 1.2 mg/dL (0.2-1.3); Total Protein 5.9 g/dL (6.3-8.2)
[2022-10-09 11:50] LABS: Glucose,Whole Blood 102 mg/dL (70-110)
[2022-10-09] MEDS ORDERED: POTASSIUM CHLORIDE 20 MEQ in WATER FOR INJECTION 1 100ML.BAG IVPB STA (13:44)
--- NOTE | 2022-10-09 13:45 | P.PN ---
Subjective Progress Note Date: 10/09/22 CHIEF COMPLAINT: Intractable nausea and vomiting HISTORY OF PRESENT ILLNESS: Patient continues to have dysphagia for nausea and vomiting. Computed tomography scan and esophagram showed no definite abnorm alities. Patient reports slight improvement in her symptoms. She is still having the vomiting and epigastric pain. She was able to eat about 4 bites of her oatmeal. She is having flatus. Denies any bowel movement. Afebrile. WBC is 4.4 Hgb 12.3 platelets 138 sodium was 135 potassium is 3.5 creatinine 0.68 total bilirubin 1.2 AST 80 ALT 148 LFTs are trending down PHYSICAL EXAM: VITAL SIGNS: Reviewed. GENERAL: Well-developed in no acute distress. HEENT: No sclera icterus. Extraocular movements grossly intact. Moist buccal mucosa. Head is atraumatic, normocephalic. ABDOMEN: Soft. Nondistended. Epigastric tenderness Neuro: Alert and oriented. Cranial nerves II through XII grossly intact. ASSESSMENT: 1. Intractable nausea and vomiting with epigastric pain 2. Dehydration 3. Status post laparoscopic sleeve gastrectomy on 08/19/2022 4. Bradycardia evaluated by cardiology 5. Elevated LFTs with history of cholecystectomy and hepatic steatosis. LFTs trending down 6. Hypokalemia PLAN: -Further recommendations forthcoming per surgeon regarding possible EGD -Continue IV fluids -Continue antiemetics -IV Protonix increased to twice a day -Continue Decadron -Continue full liquids, no carbonated beverages -Replace potassium Physician Opthalmic Tech note has been reviewed by physician. Signing provider agrees with the documented findings, assessment, and plan of care. Objective - Vital Signs Vital signs: Vital Signs Temp 97.7 F 10/09/22 12:25 Pulse 43 L 10/09/22 12:25 Resp 16 10/09/22 12:25 BP 144/60 10/09/22 12:25 Pulse Ox 99 10/09/22 12:25 FiO2 Intake & Output 10/08/22 10/09/22 10/09/22 18:59 06:59 18:59 Other: Voiding Method Toilet # Voids 1 1 2 - Labs CBC & Chem 7: 10/09/22 08:03 10/09/22 08:03 Labs: Abnormal Lab Results - Last 24 Hours (Table) 10/08/22 10/08/22 10/09/22 Range/Units 16:40 20:12 06:12 Plt Count (150-450) k/uL Lymphocytes # (1.0-4.8) k/uL Sodium (137-145) mmol/L Glucose (74-99) mg/dL POC Glucose (mg/dL) 121 H 111 H 118 H (70-110) mg/dL Calcium (8.4-10.2) mg/dL AST (14-36) U/L ALT (4-34) U/L Total Protein (6.3-8.2) g/dL 10/09/22 10/09/22 Range/Units 08:03 08:03 Plt Count 138 L (150-450) k/uL Lymphocytes # 0.8 L (1.0-4.8) k/uL Sodium 135 L (137-145) mmol/L Glucose 129 H (74-99) mg/dL POC Glucose (mg/dL) (70-110) mg/dL Calcium 7.9 L (8.4-10.2) mg/dL AST 80 H (14-36) U/L ALT 148 H (4-34) U/L Total Protein 5.9 L (6.3-8.2) g/dL Microbiology - Last 24 Hours (Table) 10/08/22 14:17 Urine Culture - Preliminary Urine,Voided
--- NOTE | 2022-10-09 15:20 | P.PN ---
Subjective Progress Note Date: 10/09/22 Patient seen and examined at bedside. Patient continues to have epigastric pain with nausea. Patient denies chest pain shortness of breath. Patient further denies fever or chills. Patient is going to have an EGD for further assessment. Objective - Vital Signs Vital signs: Vital Signs Temp 97.7 F 10/09/22 12:25 Pulse 43 L 10/09/22 12:25 Resp 16 10/09/22 12:25 BP 144/60 10/09/22 12:25 Pulse Ox 99 10/09/22 12:25 FiO2 Intake & Output 10/08/22 10/09/22 10/09/22 18:59 06:59 18:59 Other: Voiding Method Toilet # Voids 1 1 2 - Exam General: [non toxic], [no distress], [appears at stated age] Derm: [warm], [dry] Head: [atraumatic], [normocephalic], [symmetric] Eyes: [EOMI], [no lid lag], [anicteric sclera] Mouth: [no lip lesion], [mucus membranes moist] Cardiovascular: [S1S2 reg], [no murmur], [positive posterior tibial pulse bilateral], Lungs: [CTA bilateral], [no rhonchi, no rales] , [no accessory muscle use] Abdominal: [soft], [ epigastric tender to palpation], [no guarding], [no appreciable organomegaly] Ext: [no gross muscle atrophy], [no edema], [no contractures] Neuro: [ CN II-XI grossly intact], [no focal neuro deficits] Psych: [Alert], [oriented], [appropriate affect] - Labs CBC & Chem 7: 10/09/22 08:03 10/09/22 08:03 Labs: Abnormal Lab Results - Last 24 Hours (Table) 10/08/22 10/08/22 10/09/22 Range/Units 16:40 20:12 06:12 Plt Count (150-450) k/uL Lymphocytes # (1.0-4.8) k/uL Sodium (137-145) mmol/L Glucose (74-99) mg/dL POC Glucose (mg/dL) 121 H 111 H 118 H (70-110) mg/dL Calcium (8.4-10.2) mg/dL AST (14-36) U/L ALT (4-34) U/L Total Protein (6.3-8.2) g/dL 10/09/22 10/09/22 Range/Units 08:03 08:03 Plt Count 138 L (150-450) k/uL Lymphocytes # 0.8 L (1.0-4.8) k/uL Sodium 135 L (137-145) mmol/L Glucose 129 H (74-99) mg/dL POC Glucose (mg/dL) (70-110) mg/dL Calcium 7.9 L (8.4-10.2) mg/dL AST 80 H (14-36) U/L ALT 148 H (4-34) U/L Total Protein 5.9 L (6.3-8.2) g/dL Microbiology - Last 24 Hours (Table) 10/08/22 14:17 Urine Culture - Preliminary Urine,Voided Assessment and Plan Assessment: Intractable nausea and vomiting with recent gastric sleeve Nothing by mouth general surgery recommendations appreciated EGD pending Susanfrrena and reglelia IV fluids Sinus bradycardia Troponin negative, no heart history in the past Monitor on telemetry Likely sec to dehydration, give IV fluids Cardiology signed off Type 2 diabetes SSI Hold ozympic History of hypertension All stable Resume meds Admit to inpatient expected length of stay more than 2 midnights
[2022-10-09 17:05] LABS: Glucose,Whole Blood 105 mg/dL (70-110)
[2022-10-09 20:23] LABS: Glucose,Whole Blood 95 mg/dL (70-110)
[2022-10-10] MEDS: DEXAMETHASONE SOD PHOSPHATE 4 MG/ML 1 ML VIAL IVP SCH ×3 (03:05→20:18)
[2022-10-10] MEDS: SODIUM CHLORIDE 0.9% 1,000 ML IV SCH ×2 (03:05→13:06)
[2022-10-10] MEDS: KETOROLAC 15 MG/ML 1 ML VIAL IVP SCH (06:03)
[2022-10-10 06:14] LABS: Glucose,Whole Blood 119 mg/dL (70-110)
[2022-10-10] MEDS: INSULIN ASPART (NovoLOG) 100 UNIT/ML VIAL SQ SCH ×4 (06:20→20:17)
[2022-10-10 08:28] LABS: ALT 117 U/L (4-34); AST 48 U/L (14-36); African American GFR (CKD) >90 (>60 ml/min/1.73 sqM); Albumin 3.3 g/dL (3.5-5.0); Alkaline Phosphatase 75 U/L (38-126); Anion Gap 5 mmol/L; Blood Urea Nitrogen 13 mg/dL (7-17); Calcium 7.6 mg/dL (8.4-10.2); Carbon Dioxide 28 mmol/L (22-30); Chloride 98 mmol/L (98-107); Glucose 114 mg/dL (74-99); Non-African American GFR(CKD) >90 (>60 ml/min/1.73 sqM); Potassium 3.8 mmol/L (3.5-5.1); Sodium 131 mmol/L (137-145); Total Bilirubin 1.1 mg/dL (0.2-1.3); Total Protein 5.6 g/dL (6.3-8.2)
[2022-10-10 08:34] LABS: Basophils % (A) 0 %; Eosinophils % (A) 0 %; HGB 12.6 gm/dL (11.4-16.0); Lymphocytes # (A) 0.7 k/uL (1.0-4.8); Lymphocytes % (A) 17 %; MCH 29.7 pg (25.0-35.0); MCHC 34.1 g/dL (31.0-37.0); MCV 87.2 fL (80.0-100.0); Mean Platelet Volume 8.9; Monocytes # (A) 0.1 k/uL (0-1.0); Monocytes % (A) 3 %; Neutrophils # (A) 3.3 k/uL (1.3-7.7); Neutrophils % (A) 79 %; Platelet Count 129 k/uL (150-450); RBC 4.24 m/uL (3.80-5.40); RDW 14.6 % (11.5-15.5); WBC 4.2 k/uL (3.8-10.6)
[2022-10-10] MEDS: PANTOPRAZOLE 40 MG/10 ML VIAL IVP SCH ×2 (09:03→20:18)
[2022-10-10] MEDS ORDERED: LIDOCAINE 2% INJ 20 MG/ML (2 ML VIAL) ONE (09:34)
[2022-10-10] MEDS ORDERED: PROPOFOL 10 MG/ML 20 ML VIAL IV ONE (09:34)
[2022-10-10] MEDS ORDERED: IV FLUID CONTINUATION 1,000 ML IV ONE ×2 (09:39)
[2022-10-10 11:37] LABS: Glucose,Whole Blood 108 mg/dL (70-110)
--- NOTE | 2022-10-10 11:42 | P.PCN ---
Date of Procedure: 10/10/22 Procedure(s) Performed: Preoperative Dx: Dysphagia, GERD Postoperative Dx: Mild gastritis, normal appearing sleeve Procedure: EGD with Bx Anesthesia: Sedation Endoscopist: Dr. Montero Specimens: Antrum Endoscopic Procedure: The patient was on the endoscopy table in the left decubitus position. The Olympus gastroscope was inserted into the oropharynx and passed under direct visualization to the region of the third portion of the duodenum. From that point the scope was slowly withdrawn inspecting all lin rfaces carefully. There were no neoplastic inflammatory or polypoid lesions throughout the duodenum. The pylorus was widely patent. The stomach was carefully inspected. There was mild gastritis in the antrum. A biopsy of the antrum took place to rule out H. pylori. The staple line appeared normal. There was no evidence of leak or obstruction. There was a small pouch at the very superior aspect of the stomach that was mildly distended. The esophagus was then carefully examined. There were no neoplastic inflammatory or polypoid lesions throughout the visualized esophagus. The patient was then taken to the recovery room in stable condition per anesthesia guidelines. Recommendations: Resume diet. Add Carafate. Monitor liquid intake. Hopefully discharge tomorrow.
[2022-10-10] MEDS: lisinopriL 10 MG TAB PO SCH (13:06)
[2022-10-10] MEDS: SUCRALFATE 1 GM TAB PO SCH ×2 (13:06→17:45)
--- NOTE | 2022-10-10 15:55 | P.PN ---
Subjective Progress Note Date: 10/10/22 Patient seen and examined at bedside. Patient's nausea and abdominal pain slightly improved. Patient had an EGD this morning showing gastritis. Carafate was added by surgery. Patient denies chest pain shortness of breath fever chills. Objective - Vital Signs Vital signs: Vital Signs Temp 98.0 F 10/10/22 12:00 Pulse 40 L 10/10/22 12:00 Resp 16 10/10/22 12:00 BP 149/65 10/10/22 12:00 Pulse Ox 98 10/10/22 12:00 FiO2 Intake & Output 10/09/22 10/10/22 10/10/22 18:59 06:59 18:59 Intake Total 50 Balance 50 Intake: IV 50 Other: Voiding Method Toilet Toilet Toilet # Voids 1 2 - Exam General: [non toxic], [no distress], [appears at stated age] Derm: [warm], [dry] Head: [atraumatic], [normocephalic], [symmetric] Eyes: [EOMI], [no lid lag], [anicteric sclera] Mouth: [no lip lesion], [mucus membranes moist] Cardiovascular: [S1S2 reg], [no murmur], [positive posterior tibial pulse bilateral], Lungs: [CTA bilateral], [no rhonchi, no rales] , [no accessory muscle use] Abdominal: [soft], [ epigastric tender to palpation.], [no guarding], [no appreciable organomegaly] Ext: [no gross muscle atrophy], [no edema], [no contractures] Neuro: [ CN II-XI grossly intact], [no focal neuro deficits] Psych: [Alert], [oriented], [appropriate affect] - Labs CBC & Chem 7: 10/10/22 07:13 10/10/22 07:13 Labs: Abnormal Lab Results - Last 24 Hours (Table) 10/10/22 10/10/22 10/10/22 Range/Units 06:12 07:13 07:13 Plt Count 129 L (150-450) k/uL Lymphocytes # 0.7 L (1.0-4.8) k/uL Sodium 131 L (137-145) mmol/L Glucose 114 H (74-99) mg/dL POC Glucose (mg/dL) 119 H (70-110) mg/dL Calcium 7.6 L (8.4-10.2) mg/dL AST 48 H (14-36) U/L ALT 117 H (4-34) U/L Total Protein 5.6 L (6.3-8.2) g/dL Albumin 3.3 L (3.5-5.0) g/dL Microbiology - Last 24 Hours (Table) 10/08/22 14:17 Urine Culture - Final Urine,Voided Assessment and Plan Assessment: Intractable nausea and vomiting with recent gastric sleeve EGD this morning revealed gastritis Carafate added IV fluids Sinus bradycardia Troponin negative, no heart history in the past Monitor on telemetry Likely sec to dehydration, give IV fluids Cardiology signed off Type 2 diabetes SSI Hold ozympic History of hypertension All stable Resume meds Disposition: Discharge in the morning
[2022-10-10 16:30] LABS: Glucose,Whole Blood 94 mg/dL (70-110)
[2022-10-10 19:52] LABS: Glucose,Whole Blood 90 mg/dL (70-110)
[2022-10-11] MEDS: DEXAMETHASONE SOD PHOSPHATE 4 MG/ML 1 ML VIAL IVP SCH (03:37)
[2022-10-11 03:55] VITALS: PULSE 40
[2022-10-11] MEDS: SODIUM CHLORIDE 0.9% 1,000 ML IV SCH (04:07)
[2022-10-11 05:59] LABS: Glucose,Whole Blood 102 mg/dL (70-110)
[2022-10-11] MEDS: INSULIN ASPART (NovoLOG) 100 UNIT/ML VIAL SQ SCH (06:04)
[2022-10-11] MEDS: SUCRALFATE 1 GM TAB PO SCH (06:12)
[2022-10-11] MEDS: PANTOPRAZOLE 40 MG/10 ML VIAL IVP SCH (10:31)
[2022-10-11] MEDS: lisinopriL 10 MG TAB PO SCH (10:31)
[2022-10-11 10:33] VITALS: RESP 16
[2022-10-11 10:41] LABS: Basophils % (A) 0 %; Eosinophils % (A) 0 %; HCT 39.9 % (34.0-46.0); HGB 13.7 gm/dL (11.4-16.0); Lymphocytes # (A) 0.7 k/uL (1.0-4.8); Lymphocytes % (A) 14 %; MCH 29.9 pg (25.0-35.0); MCHC 34.4 g/dL (31.0-37.0); Mean Platelet Volume 8.7; Monocytes # (A) 0.2 k/uL (0-1.0); Monocytes % (A) 3 %; Neutrophils % (A) 82 %; Platelet Count 156 k/uL (150-450); RBC 4.58 m/uL (3.80-5.40); RDW 14.1 % (11.5-15.5); WBC 4.9 k/uL (3.8-10.6)
[2022-10-11 10:56] LABS: ALT 111 U/L (4-34); AST 50 U/L (14-36); African American GFR (CKD) >90 (>60 ml/min/1.73 sqM); Albumin 3.6 g/dL (3.5-5.0); Alkaline Phosphatase 79 U/L (38-126); Anion Gap 8 mmol/L; Blood Urea Nitrogen 13 mg/dL (7-17); Calcium 7.9 mg/dL (8.4-10.2); Carbon Dioxide 27 mmol/L (22-30); Chloride 97 mmol/L (98-107); Glucose 107 mg/dL (74-99); Non-African American GFR(CKD) >90 (>60 ml/min/1.73 sqM); Sodium 132 mmol/L (137-145); Total Bilirubin 1.3 mg/dL (0.2-1.3)
--- NOTE | 2022-10-11 11:29 | P.DS ---
Providers Date of admission: 10/06/22 13:33 Expected date of discharge: 10/11/22 Attending physician: Anayeli Davis MD Consults: 10/06/22 13:14 Consult Physician Urgent Consulting Provider: Russel Jernigan Consult Reason/Comments: Bradycardia Do you want consulting provider notified?: Yes Consult Physician Urgent Consulting Provider: Sincere Armstrong Consult Reason/Comments: Status post gastric sleeve Do you want consulting provider notified?: Yes Primary care physician: Sonya Hsieh Hospital Course: Admitting diagnoses: Sinus bradycardia Tractable nausea vomiting with recent gastric sleeve Discharge diagnoses: Gastritis Nausea and vomiting likely related to ozempic Recent gastric sleeve Type 2 diabetes mellitus Hospital course: 56 y/o female with recent gastric sleeve placement by surgery in mid august presented to the ER due to worsening nausea, vomiting as well as upper abdominal lower chest pain. He has not been able to hold down any food over the past several days. Symptoms have been ongoing for the past 2 weeks, especially worse since one week. Denied fevers but has some chills. No shortness of breath. Feeling weak and dizzy. In the emergency department she was found to be bradycardic with heart rate in the 30s and 40s. EKG reveals sinus bradycardia. Her labs were fairly unremarkable except for slightly elevated AST at 67 and the ALT 89. Urinalysis was positive for 3+ ketones. Cardiology followed the patient. Workup was negative. EGD completed gastritis was identified. General surgery follow-up. Medications adjusted. Physical exam: General: [no distress], [appears at stated age] Derm: [warm], [dry] Head: [atraumatic], [normocephalic], [symmetric] Eyes: [EOMI], [no lid lag], [anicteric sclera] Mouth: [no lip lesion], [mucus membranes moist] Cardiovascular: [S1S2 reg], [no murmur], [positive posterior tibial pulse bilateral], Lungs: [CTA bilateral], [no rhonchi, no rales] , [no accessory muscle use] Abdominal: [soft], [ nontender to palpation], [no guarding], [no appreciable organomegaly] Ext: [no gross muscle atrophy], [no edema], [no contractures] Neuro: [ CN II-XI grossly intact], [no focal neuro deficits] Psych: [Alert], [oriented], [appropriate affect] Intractable nausea and vomiting with recent gastric sleeve and medication ozempic EGD this morning revealed gastritis Carafate added IV fluids provided Sinus bradycardia Troponin negative, no heart history in the past Likely sec to dehydration, give IV fluids Cardiology signed off Type 2 diabetes SSI Hold ozympic History of hypertension All stable Resume meds Follow-up with PCP in 2-7 days Follow-up with general surgery in 2 weeks Disposition: Home Activity: As tolerated Diet: Diabetic Addition: Fair Patient Condition at Discharge: Fair Plan - Discharge Summary Discharge Rx Participant: Yes New Discharge Prescriptions: New Pantoprazole Sodium [Protonix] 40 mg PO DAILY #30 tab Ondansetron Odt [Zofran Odt] 4 mg PO Q8HR PRN #30 tab PRN Reason: Nausea Sucralfate [Carafate] 1 gm PO AC-TID #90 tab lisinopriL [Zestril] 10 mg PO DAILY tab methylPREDNISolone Dose Pack [Medrol Dose Pack] 4 mg PO DIRECTED #1 packet Discontinued Semaglutide [Ozempic] 1 mg SQ SWAN Discharge Medication List Ondansetron Odt [Zofran Odt] 4 mg PO Q8HR PRN #30 tab 10/11/22 [Rx] Pantoprazole Sodium [Protonix] 40 mg PO DAILY #30 tab 10/11/22 [Rx] Sucralfate [Carafate] 1 gm PO AC-TID #90 tab 10/11/22 [Rx] lisinopriL [Zestril] 10 mg PO DAILY tab 10/11/22 [Rx] methylPREDNISolone Dose Pack [Medrol Dose Pack] 4 mg PO DIRECTED #1 packet 10/11/22 [Rx] Follow up Appointment(s)/Referral(s): Iain Knox MD [STAFF PHYSICIAN] - 2 Weeks Sonya Hsieh DO [Primary Care Provider] - 1-2 days Discharge Disposition: HOME SELF-CARE
[2022-10-11 11:45] LABS: Glucose,Whole Blood 104 mg/dL (70-110)
[2022-10-11 12:21] VITALS: BP 124/62; TEMP 98.2
--- NOTE | 2022-10-11 13:24 | P.PN ---
Subjective Progress Note Date: 10/11/22 Principal diagnosis: Dysphagia Patient doing better today. She is tolerating her diet. No vomiting overnight. She would like to go home today. She thinks she will able to maintain her hydration status. Objective - Vital Signs Vital signs: Vital Signs Temp 98.2 F 10/11/22 12:00 Pulse 40 L 10/11/22 12:00 Resp 16 10/11/22 12:00 BP 124/62 10/11/22 12:00 Pulse Ox 98 10/11/22 12:00 FiO2 Intake & Output 10/10/22 10/11/22 10/11/22 18:59 06:59 18:59 Intake Total 50 480 Balance 50 480 Intake: IV 50 Oral 480 Other: Voiding Method Toilet Toilet Toilet # Voids 2 2 - Exam Abdomen: Soft, nontender, nondistended - Labs CBC & Chem 7: 10/11/22 09:59 10/11/22 09:59 Labs: Abnormal Lab Results - Last 24 Hours (Table) 10/11/22 10/11/22 Range/Units 09:59 09:59 Lymphocytes # 0.7 L (1.0-4.8) k/uL Sodium 132 L (137-145) mmol/L Chloride 97 L (98-107) mmol/L Glucose 107 H (74-99) mg/dL Calcium 7.9 L (8.4-10.2) mg/dL AST 50 H (14-36) U/L ALT 111 H (4-34) U/L Total Protein 6.0 L (6.3-8.2) g/dL Assessment and Plan (1) Nausea & vomiting Narrative/Plan: Patient gradually improved during this hospital stay. Doing better at this t alexis. Continue Carafate and Protonix postdischarge. Follow-up with bariatric center on Thursday. February discharge. Status: Acute Code(s): R11.2 - NAUSEA WITH VOMITING, UNSPECIFIED SNOMED Code(s): 42828772
== END 2022-10-11 13:21 | disposition home or self-care (01) | DRG 392 ==
LOC: EC 09:02 → 3SCARD 13:33
PROVIDERS: ADMIT Internal Medicine; ATTEND Internal Medicine
PROC: 0DB78ZX Excision of Stomach, Pylorus, Via Natural or Artificial Opening Endoscopic, Diagnostic (ICD-10-PCS; principal; 2022-10-10 07:30)
DX: K29.70 Gastritis, unspecified, without bleeding (principal); E11.9 Type 2 diabetes mellitus without complications; E78.5 Hyperlipidemia, unspecified; E86.0 Dehydration; E87.6 Hypokalemia; I10 Essential (primary) hypertension; K21.9 Gastro-esophageal reflux disease without esophagitis; R13.10 Dysphagia, unspecified; G47.30 Sleep apnea, unspecified; K76.0 Fatty (change of) liver, not elsewhere classified; M19.012 Primary osteoarthritis, left shoulder; G89.29 Other chronic pain; T38.3X5A Adverse effect of insulin and oral hypoglycemic [antidiabetic] drugs, initial encounter; Z87.442 Personal history of urinary calculi; Z87.891 Personal history of nicotine dependence; Z90.49 Acquired absence of other specified parts of digestive tract; Z98.84 Bariatric surgery status; Z28.310 Unvaccinated for COVID-19
CPT/HCPCS: 36415; 43239; 74018; 74240; 80053; 81001; 83605; 83690; 83735; 84100; 84443; 84484; 85025; 87086; 88305; 88342; 93005; 96361; 96374; 96375; 99285

== ENCOUNTER 2022-10-21 12:17 | Inpatient (IN) | payer BC ==
[2022-10-21] MEDS ORDERED: PANTOPRAZOLE 40 MG/10 ML VIAL IVP STA (12:23)
[2022-10-21] MEDS ORDERED: ONDANSETRON 4 MG/2 ML VIAL IVP STA (12:23)
[2022-10-21] MEDS ORDERED: HYDROmorphone 0.5 MG/0.5 ML SYRINGE IVP STA (12:24)
[2022-10-21] MEDS ORDERED: SODIUM CHLORIDE 0.9% 2,000 ML IV STA (12:27)
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
[2022-10-21 12:49] LABS: Basophils % (A) 0 %; Eosinophils # (A) 0.1 k/uL (0-0.7); Eosinophils % (A) 1 %; HCT 43.2 % (34.0-46.0); HGB 14.7 gm/dL (11.4-16.0); Lymphocytes # (A) 0.6 k/uL (1.0-4.8); Lymphocytes % (A) 10 %; MCH 29.3 pg (25.0-35.0); MCHC 34.2 g/dL (31.0-37.0); MCV 85.6 fL (80.0-100.0); Mean Platelet Volume 6.9; Monocytes # (A) 0.2 k/uL (0-1.0); Monocytes % (A) 3 %; Neutrophils % (A) 85 %; Platelet Count 199 k/uL (150-450); RBC 5.04 m/uL (3.80-5.40); RDW 15.1 % (11.5-15.5); WBC 5.9 k/uL (3.8-10.6)
[2022-10-21] MEDS ORDERED: ACETAMINOPHEN TAB 325 MG TAB PO PRN (12:55)
[2022-10-21] MEDS ORDERED: NALOXONE 0.4 MG/ML 1 ML VIAL IV PRN (12:55)
[2022-10-21 13:00] LABS: ALT 41 U/L (4-34); AST 24 U/L (14-36); African American GFR (CKD) >90 (>60 ml/min/1.73 sqM); Albumin 3.7 g/dL (3.5-5.0); Alkaline Phosphatase 95 U/L (38-126); Amylase 40 U/L (30-110); Anion Gap 12 mmol/L; Blood Urea Nitrogen 8 mg/dL (7-17); Calcium 8.3 mg/dL (8.4-10.2); Carbon Dioxide 25 mmol/L (22-30); Chloride 100 mmol/L (98-107); Glucose 127 mg/dL (74-99); Lipase 106 U/L (23-300); Non-African American GFR(CKD) >90 (>60 ml/min/1.73 sqM); Potassium 2.8 mmol/L (3.5-5.1); Sodium 137 mmol/L (137-145); Total Bilirubin 1.8 mg/dL (0.2-1.3); Total Protein 6.3 g/dL (6.3-8.2)
[2022-10-21 13:35] LABS: INR 1.1 (<1.2); Prothrombin Time 11.1 sec (9.0-12.0)
[2022-10-21 13:39] LABS: Partial Thromboplastin Time 20.9 sec (22.0-30.0)
[2022-10-21] MEDS ORDERED: POTASSIUM CHLORIDE ER 20 MEQ TAB.ER PO STA (15:23)
[2022-10-21] MEDS: SODIUM CHLORIDE 0.9% 1,000 ML IV SCH ×2 (15:59→19:47)
[2022-10-21] MEDS: HYDROmorphone 1 MG/ML 1 ML SYRINGE IVP PRN ×2 (16:06→19:41)
[2022-10-21] MEDS: ONDANSETRON 4 MG/2 ML VIAL IVP PRN (16:06)
[2022-10-22] MEDS: ONDANSETRON 4 MG/2 ML VIAL IVP PRN ×3 (01:07→15:35)
[2022-10-22] MEDS: HYDROmorphone 1 MG/ML 1 ML SYRINGE IVP PRN ×5 (01:07→20:01)
[2022-10-22] MEDS: SODIUM CHLORIDE 0.9% 1,000 ML IV SCH ×3 (01:13→20:01)
[2022-10-22 01:14] LABS: Appearance,Urine Clear (Clear); Bilirubin,Urine 1+ (Negative); Blood,Urine Negative (Negative); Color,Urine Yellow; Glucose,Urine (UA) Negative (Negative); Ketones,Urine 2+ (Negative); Leukocyte Esterase,Urine Negative (Negative); Nitrite,Urine Negative (Negative); PH, Urine 6.5 (5.0-8.0); Protein,Urine Trace (Negative); Specific Gravity,Urine 1.018 (1.001-1.035)
[2022-10-22 06:10] LABS: HGB 12.3 gm/dL (11.4-16.0); MCH 29.2 pg (25.0-35.0); MCHC 33.3 g/dL (31.0-37.0); MCV 87.7 fL (80.0-100.0); Platelet Count 164 k/uL (150-450); RBC 4.23 m/uL (3.80-5.40); RDW 15.2 % (11.5-15.5); WBC 5.9 k/uL (3.8-10.6)
[2022-10-22 06:30] LABS: ALT 68 U/L (4-34); AST 52 U/L (14-36); African American GFR (CKD) >90 (>60 ml/min/1.73 sqM); Albumin 3.3 g/dL (3.5-5.0); Albumin/Globulin Ratio 1.4; Alkaline Phosphatase 159 U/L (38-126); Anion Gap 8 mmol/L; Blood Urea Nitrogen 5 mg/dL (7-17); Calcium 7.5 mg/dL (8.4-10.2); Carbon Dioxide 25 mmol/L (22-30); Chloride 105 mmol/L (98-107); Globulin 2.3 g/dL; Glucose 103 mg/dL (74-99); Non-African American GFR(CKD) >90 (>60 ml/min/1.73 sqM); Potassium 3.2 mmol/L (3.5-5.1); Sodium 138 mmol/L (137-145); Total Bilirubin 1.3 mg/dL (0.2-1.3); Total Protein 5.6 g/dL (6.3-8.2)
[2022-10-22] MEDS: PANTOPRAZOLE 40 MG/10 ML VIAL IV SCH (07:52)
[2022-10-22] MEDS ORDERED: POTASSIUM CHLORIDE ER 20 MEQ TAB.ER PO STA (08:39)
[2022-10-22] MEDS ORDERED: METOCLOPRAMIDE 10 MG TAB PO PRN (12:09)
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
[2022-10-22] MEDS: SUCRALFATE 1 GM TAB PO SCH ×2 (12:40→17:50)
[2022-10-22] MEDS: IOPAMIDOL CONTRAST (ORAL USE) VIAL PO PRN ×2 (13:30→14:43)
[2022-10-22] MEDS ORDERED: MAGNESIUM SULFATE-D5W PMX 1 GM in DEXTROSE/WATER 1 100ML.BAG IVPB ONE (13:40)
--- NOTE | 2022-10-22 13:41 | P.PN ---
Subjective Progress Note Date: 10/22/22 CHIEF COMPLAINT: Dysphagia HISTORY OF PRESENT ILLNESS: Patient continues to have problems with dysphagia with nausea and vomiting. She is no longer having diarrhea. Her sleep gastrectomy was in August. She also has had a history of cholecystectomy. He shouldn't does feel like her food is getting stuck. Also describes it as her burps or getting stuck. She's had a recent EGD with no evidence of obstruction. Potassium is low and being replaced. Afebrile. WBC is 5.9 Hgb is 12.3 platelets are 164 sodium is 138 potassium 3.2 creatinine is 0.48 magnesium 1.7 total bili 1.3 AST 52 ALT 68 and alk phos 159 PHYSICAL EXAM: VITAL SIGNS: Reviewed. GENERAL: Well-developed in no acute distress. HEENT: No sclera icterus. Extraocular movements grossly intact. Moist buccal mucosa. Head is atraumatic, normocephalic. ABDOMEN: Soft. Nondistended. Nontender. NEUROLOGIC: Alert and oriented. Cranial nerves II through XII grossly intact. ASSESSMENT: 1. Dehydration 2. Dysphagia 3. Diarrhea 4. Hypokalemia 5. Hypomagnesemia 6. History of sleep gastrectomy in August 2022 PLAN: -Patient scheduled for computed tomography scan abdomen and pelvis with contrast -Patient scheduled for EGD tomorrow with Dr. lee -Replace potassium and magnesium -Check thiamine level -Check stool for C. diff -Continue antiemetics -Continue pain management -Continue IV fluids -DVT prophylaxis subcu heparin Physician Material Mixer note has been reviewed by physician. Signing provider agrees with the documented findings, assessment, and plan of care. Objective - Vital Signs Vital signs: Vital Signs Temp 98 F 10/22/22 07:00 Pulse 67 10/22/22 08:00 Resp 18 10/22/22 08:00 BP 140/83 10/22/22 07:00 Pulse Ox 97 10/22/22 07:00 FiO2 Intake & Output 10/21/22 10/22/22 10/22/22 18:59 06:59 18:59 Intake Total 120 Output Total 500 Balance -500 120 Weight 105.687 kg 105.687 kg Intake: Oral 120 Output: Urine 400 Emesis 100 Other: Voiding Method Toilet Toilet - Labs CBC & Chem 7: 10/22/22 05:46 10/22/22 05:46 Labs: Abnormal Lab Results - Last 24 Hours (Table) 10/21/22 10/22/22 10/22/22 Range/Units 12:30 01:00 05:46 APTT 20.9 L (22.0-30.0) sec Potassium 3.2 L (3.5-5.1) mmol/L BUN 5 L (7-17) mg/dL Creatinine 0.48 L (0.52-1.04) mg/dL Glucose 103 H (74-99) mg/dL Calcium 7.5 L (8.4-10.2) mg/dL AST 52 H (14-36) U/L ALT 68 H (4-34) U/L Alkaline Phosphatase 159 H (38-126) U/L Total Protein 5.6 L (6.3-8.2) g/dL Albumin 3.3 L (3.5-5.0) g/dL Urine Protein Trace H (Negative) Urine Ketones 2+ H (Negative) Urine Bilirubin 1+ H (Negative)
--- NOTE | 2022-10-22 16:18 | CT ---
EXAMINATION TYPE: CT abdomen pelvis w con DATE OF EXAM: 10/22/2022 COMPARISON: 10/05/2022 HISTORY: 56-year-old female abdominal pain, nausea, vomiting. Patient had gastric sleeve few months a go TECHNIQUE: Contiguous axial scanning of the abdomen and pelvis following administration of 75 ml Isov ue 300 IV contrast. Delayed images through the kidneys and coronal/sagittal reconstructions performe d. CT DLP: 1753 mGycm Automated exposure control for dose reduction was used. FINDINGS: Patient was unable to tolerate all of the oral contrast. Heart upper limits of normal in size without pericardial effusion. Mild strandy atelectasis in the lower lungs without pleural effusion. Some oral contrast material noted within the distal esophagus. There are postsurgical changes of slee ve gastrectomy demonstrated. No abnormal fluid collection along the surgical site. Mild soft tissue thickening anterior mid abdomen within the subcutaneous adipose layer, likely scar f rom the laparoscopic port. No focal liver lesion or cholecystectomy clips. No biliary ductal dilatation. Portal venous system is patent. Adrenal glands, kidneys, spleen, and pancreas within normal limits. Normal appendix. There is mild circumferential pancolonic wall thickening. No significant stool burden. There may be m ild pericolonic vascular engorgement along the right hemicolon. Bladder urine distended. Some pelvic floor relaxation noted. Uterus is small. Both ovaries are visual ized. No abnormal fluid collection in the pelvis or pelvic lymphadenopathy. Bones: No osseous destructive process. IMPRESSION: 1. STATUS POST SLEEVE GASTRECTOMY. NO INFLAMMATION OR ABNORMAL FLUID COLLECTION NOTED ALONG THE GASTR IC SLEEVE. THERE IS SOME ORAL CONTRAST NOTED WITHIN THE DISTAL ESOPHAGUS THAT COULD REPRESENT ESOPHAG EAL DYSMOTILITY OR GASTROESOPHAGEAL REFLUX. 2. MILD CIRCUMFERENTIAL PANCOLONIC WALL THICKENING. CORRELATE FOR NONSPECIFIC MILD INFECTIOUS OR INFL AMMATORY COLITIS.
[2022-10-22] MEDS: HEPARIN SODIUM,PORCINE/PF 5,000 UNIT/0.5 ML SYRINGE SQ SCH (20:00)
[2022-10-23] MEDS: SODIUM CHLORIDE 0.9% 1,000 ML IV SCH ×3 (01:56→20:06)
[2022-10-23 05:49] LABS: HCT 34.8 % (34.0-46.0); HGB 11.2 gm/dL (11.4-16.0); MCH 28.8 pg (25.0-35.0); MCHC 32.3 g/dL (31.0-37.0); Mean Platelet Volume 7.6; Platelet Count 146 k/uL (150-450); RBC 3.91 m/uL (3.80-5.40); RDW 15.7 % (11.5-15.5)
[2022-10-23] MEDS: HYDROmorphone 1 MG/ML 1 ML SYRINGE IVP PRN ×5 (06:05→23:53)
[2022-10-23] MEDS: ONDANSETRON 4 MG/2 ML VIAL IVP PRN ×3 (06:06→20:57)
[2022-10-23] MEDS: SUCRALFATE 1 GM TAB PO SCH ×4 (06:06→17:51)
[2022-10-23 06:08] LABS: African American GFR (CKD) >90 (>60 ml/min/1.73 sqM); Anion Gap 6 mmol/L; Blood Urea Nitrogen 3 mg/dL (7-17); Calcium 7.5 mg/dL (8.4-10.2); Carbon Dioxide 28 mmol/L (22-30); Chloride 102 mmol/L (98-107); Glucose 96 mg/dL (74-99); Magnesium 1.9 mg/dL (1.6-2.3); Non-African American GFR(CKD) >90 (>60 ml/min/1.73 sqM); Potassium 3.3 mmol/L (3.5-5.1); Sodium 136 mmol/L (137-145)
[2022-10-23] MEDS ORDERED: POTASSIUM BICARBONATE/CIT AC 20 MEQ TABLET.EFF PO ONE (08:00)
[2022-10-23] MEDS ORDERED: IV FLUID CONTINUATION 1,000 ML IV ONE (09:17)
[2022-10-23] MEDS ORDERED: PROPOFOL 10 MG/ML 20 ML VIAL IV ONE (09:20)
[2022-10-23] MEDS ORDERED: LIDOCAINE 2% INJ 20 MG/ML (2 ML VIAL) ONE (09:20)
--- NOTE | 2022-10-23 09:43 | P.OP ---
Date of Procedure: 10/23/22 Preoperative Diagnosis: Dehydration Nausea Vomiting Colitis Postoperative Diagnosis: Antral gastritis Rectal biopsy pathology pending Procedure(s) Performed: EGD Sigmoid colonoscopy Anesthesia: MAC Surgeon: Sincere Armstrong Pathology: other (Antrum, esophagus) Condition: stable Disposition: PACU Description of Procedure: The patient's placed on the endoscopy table in the lateral position. She received IV sedation. The gastroscope was then placed the patient's oropharynx passed in the esophagus into the stomach. Scope was placed into the antrum and through the pylorus and the first and second portion of the duodenum. There is no evidence of any patient. There is no sign of any obstruction. The scope was withdrawn. The antrum. Minimal inflamed. Biopsies performed. The patient had a previous gastric sleeve. There was no obstruction of the gastric sleeve. The GE junction was at 39 cm. There was a very small hiatal hernia seen the distal esophagus appeared normal. The proximal esophagus. Scope was withdrawn. CAT scan showed evidence of colitis. A sigmoidoscopy performed. The patient was unprepped. Digital rectal exam was performed which revealed no abnormalities. The flexible sigmoidoscope was placed patient's rectum and passed and sigmoid colon. Due to the poor prep there is a limited view of the mucosa. There is a large amount liquid stool. The scope was withdrawn. And a rectum appeared to be minimal fluid. A biopsies performed. The scope was then withdrawn for patient.
[2022-10-23] MEDS: HEPARIN SODIUM,PORCINE/PF 5,000 UNIT/0.5 ML SYRINGE SQ SCH ×2 (10:41→20:05)
[2022-10-23] MEDS: POTASSIUM CHLORIDE 10 MEQ in WATER FOR INJECTION 1 100ML.BAG IVPB SCH ×2 (10:41→12:06)
[2022-10-23] MEDS: PANTOPRAZOLE 40 MG/10 ML VIAL IV SCH (10:41)
[2022-10-23] MEDS: lisinopriL 10 MG TAB PO SCH (10:42)
--- NOTE | 2022-10-23 13:29 | P.PN ---
Subjective Progress Note Date: 10/23/22 CHIEF COMPLAINT: Dysphagia HISTORY OF PRESENT ILLNESS: Patient continues to complain of nausea vomiting and diarrhea. Stool for C. difficile negative. EGD from today did show antral gastritis. A rectal biopsy was completed. Computed tomography scan abdomen had shown mild circumferential pancolonic wall thickening correlate for nonspecific mild infectious or inflammatory colitis. Afebrile. WBC is 4 hemoglobin 11.2 sodium 136 potassium 3.3 creatinine 0.45 magnesium 1.9 signing level pending Patient seen and examined with Dr. lee PHYSICAL EXAM: VITAL SIGNS: Reviewed. GENERAL: Well-developed in no acute distress. HEENT: No sclera icterus. Extraocular movements grossly intact. Moist buccal mucosa. Head is atraumatic, normocephalic. ABDOMEN: Soft. Nondistended. NEUROLOGIC: Alert and oriented. Cranial nerves II through XII grossly intact. ASSESSMENT: 1. Colitis with diarrhea 2. Dehydration 3. Nausea and vomiting likely due to electrolyte imbalance 4. Hypokalemia 5. Hypomagnesemia improved 6. History of sleep gastrectomy in August 2022 PLAN: -Start IV steroids and IV antibiotics for colitis -Would recommend GI service consult. However, GI service not available this week. Patient to follow up with GI service outpatient. -Continue to replace potassium -Continue pain management -Continue IV fluids -DVT prophylaxis subcu heparin Physician In Home Sales Consultant note has been reviewed by physician. Signing provider agrees with the documented findings, assessment, and plan of care. Objective - Vital Signs Vital signs: Vital Signs Temp 97.7 F 10/23/22 10:01 Pulse 80 10/23/22 10:31 Resp 16 10/23/22 07:00 BP 148/92 10/23/22 10:31 Pulse Ox 99 10/23/22 10:01 FiO2 Intake & Output 10/22/22 10/23/22 10/23/22 18:59 06:59 18:59 Intake Total 120 0 150 Output Total 30 Balance 90 0 150 Intake: IV 150 Oral 120 0 Output: Emesis 30 Other: Voiding Method Toilet Toilet # Voids 3 2 # Bowel Movements 1 - Labs CBC & Chem 7: 10/23/22 05:32 10/23/22 05:32 Labs: Abnormal Lab Results - Last 24 Hours (Table) 10/23/22 10/23/22 Range/Units 05:32 05:32 Hgb 11.2 L (11.4-16.0) gm/dL RDW 15.7 H (11.5-15.5) % Plt Count 146 L (150-450) k/uL Sodium 136 L (137-145) mmol/L Potassium 3.3 L (3.5-5.1) mmol/L BUN 3 L (7-17) mg/dL Creatinine 0.45 L (0.52-1.04) mg/dL Calcium 7.5 L (8.4-10.2) mg/dL
--- NOTE | 2022-10-23 13:54 | P.PN ---
Subjective Progress Note Date: 10/23/22 patient is a 56-year-old lady with past medical history significant for hypertension, hyperlipidemia, presented to the ER because of persistent abdominal pain nausea and vomiting. Patient had on 08/[address] Armstrong. Patient Stated that she had been doing well, however around [place], she started to become ill. States that she has had persistent abdominal pain with nausea and vomiting. States abdominal pain is intermittent and is generalized all over the belly. Denies any altered bowel movements. Denies any blood in the stools. Denies any hematemesis. Patient saw Dr. Armstrong yesterday, who instructed her to come to the emergency department for admission. Hospitalist team has been consulted for medical management 10/23. Patient seen and examined. EGD done this morning showed gastritis. Patient states she feels better than yesterday. REVIEW OF SYSTEMS: CONSTITUTIONAL: No fever, no malaise,. CARDIOVASCULAR: No chest pain, no palpitations, no syncope. PULMONARY: No shortness of breath, no cough, GASTROINTESTINAL: Still has abdominal pain. Complaining of nausea NEUROLOGICAL: No headaches, no weakness, PHYSICAL EXAMINATION: GENERAL: The patient is alert and oriented x3, not in any acute distress. Well developed, well nourished. HEENT: Pupils are round and equally reacting to light. EOMI. No scleral icterus. No conjunctival pallor. Normocephalic, atraumatic. No pharyngeal erythema. No thyromegaly. CARDIOVASCULAR: S1 and S2 present. No murmurs, rubs, or gallops. PULMONARY: Chest is clear to auscultation, no wheezing or crackles. ABDOMEN: Soft, nontender, nondistended, normoactive bowel sounds. No palpable organomegaly. MUSCULOSKELETAL: No joint swelling or deformity. EXTREMITIES: No cyanosis, clubbing, or pedal edema. NEUROLOGICAL: Gross neurological examination did not reveal any focal deficits. SKIN: No rashes. Assessment and plan Acute colitis Nausea and vomiting Abdominal pain History of sleeve gastrectomy Hypertension Hypokalemia Hypomagnesemia Plan; Monitor vital signs Monitor CBC Continue IV fluids EGD done showed gastritis Continue IV antibiotics Continue steroids per surgery Potassium replacement ordered Continue antiemetics Continue Protonix and Carafate Gen. surgery is on board. DVT prophylaxis: Objective - Vital Signs Vital signs: Vital Signs Temp 97.7 F 10/23/22 10:01 Pulse 62 10/23/22 13:01 Resp 16 10/23/22 07:00 BP 146/77 10/23/22 13:01 Pulse Ox 99 10/23/22 10:01 FiO2 Intake & Output 10/22/22 10/23/22 10/23/22 18:59 06:59 18:59 Intake Total 120 0 150 Output Total 30 Balance 90 0 150 Intake: IV 150 Oral 120 0 Output: Emesis 30 Other: Voiding Method Toilet Toilet # Voids 3 2 # Bowel Movements 1 - Labs CBC & Chem 7: 10/23/22 05:32 10/23/22 05:32 Labs: Abnormal Lab Results - Last 24 Hours (Table) 10/23/22 10/23/22 Range/Units 05:32 05:32 Hgb 11.2 L (11.4-16.0) gm/dL RDW 15.7 H (11.5-15.5) % Plt Count 146 L (150-450) k/uL Sodium 136 L (137-145) mmol/L Potassium 3.3 L (3.5-5.1) mmol/L BUN 3 L (7-17) mg/dL Creatinine 0.45 L (0.52-1.04) mg/dL Calcium 7.5 L (8.4-10.2) mg/dL
[2022-10-23] MEDS: LEVOFLOXACIN 500MG-D5W PMX 500 MG in DEXTROSE/WATER 1 100ML.BAG IVPB SCH (15:06)
[2022-10-23] MEDS: methylPREDNISolone SOD SUCCI 40 MG/ML 1 ML VIAL IV SCH ×2 (16:30→23:53)
[2022-10-23] MEDS: metroNIDAZOLE-NS PMX 500 MG in SALINE 1 100ML.BAG IVPB SCH ×2 (17:13→23:53)
[2022-10-24] MEDS: SODIUM CHLORIDE 0.9% 1,000 ML IV SCH ×3 (02:40→17:19)
[2022-10-24 05:35] LABS: HCT 33.9 % (34.0-46.0); HGB 11.5 gm/dL (11.4-16.0); MCH 29.5 pg (25.0-35.0); MCHC 33.9 g/dL (31.0-37.0); MCV 87.1 fL (80.0-100.0); Mean Platelet Volume 6.9; Platelet Count 132 k/uL (150-450); RDW 14.9 % (11.5-15.5)
[2022-10-24 05:45] LABS: African American GFR (CKD) >90 (>60 ml/min/1.73 sqM); Anion Gap 7 mmol/L; Blood Urea Nitrogen 5 mg/dL (7-17); Calcium 7.3 mg/dL (8.4-10.2); Carbon Dioxide 27 mmol/L (22-30); Chloride 98 mmol/L (98-107); Glucose 116 mg/dL (74-99); Magnesium 1.6 mg/dL (1.6-2.3); Non-African American GFR(CKD) >90 (>60 ml/min/1.73 sqM); Potassium 3.2 mmol/L (3.5-5.1); Sodium 132 mmol/L (137-145)
[2022-10-24] MEDS: SUCRALFATE 1 GM TAB PO SCH ×3 (05:53→17:39)
[2022-10-24] MEDS ORDERED: Potassium Replacement Protocol 1 EACH MISC MISCELLANE PRN (06:15)
[2022-10-24] MEDS: ONDANSETRON 4 MG/2 ML VIAL IVP PRN ×3 (06:22→18:23)
[2022-10-24] MEDS: POTASSIUM CHLORIDE ER 20 MEQ TAB.ER PO SCH ×2 (06:22→08:49)
[2022-10-24] MEDS: metroNIDAZOLE-NS PMX 500 MG in SALINE 1 100ML.BAG IVPB SCH ×2 (08:48→16:13)
[2022-10-24] MEDS: PANTOPRAZOLE 40 MG/10 ML VIAL IV SCH (08:49)
[2022-10-24] MEDS: HEPARIN SODIUM,PORCINE/PF 5,000 UNIT/0.5 ML SYRINGE SQ SCH ×2 (08:49→19:57)
[2022-10-24] MEDS: lisinopriL 10 MG TAB PO SCH (08:49)
[2022-10-24] MEDS: methylPREDNISolone SOD SUCCI 40 MG/ML 1 ML VIAL IV SCH ×2 (08:49→16:12)
[2022-10-24] MEDS: HYDROmorphone 1 MG/ML 1 ML SYRINGE IVP PRN ×3 (08:50→18:31)
[2022-10-24] MEDS ORDERED: [UNRECOGNIZED DRUG - REMARK] IV ONE ×2 (09:00)
[2022-10-24] MEDS: MAGNESIUM SULFATE-D5W PMX 1 GM in DEXTROSE/WATER 1 100ML.BAG IVPB SCH ×2 (10:08→11:31)
[2022-10-24 10:58] VITALS: BMI 44.0
[2022-10-24] MEDS: POTASSIUM CHLORIDE 10 MEQ in WATER FOR INJECTION 1 100ML.BAG IVPB SCH ×2 (12:34→13:39)
[2022-10-24] MEDS: LEVOFLOXACIN 500MG-D5W PMX 500 MG in DEXTROSE/WATER 1 100ML.BAG IVPB SCH (14:54)
--- NOTE | 2022-10-24 15:12 | P.PN ---
Subjective Progress Note Date: 10/24/22 CHIEF COMPLAINT: Dysphagia HISTORY OF PRESENT ILLNESS: Patient reports she is starting to feel better tod ay. She reports some dizziness after her shower. She is asking for advancement in her diet. She's had no further diarrhea. The nausea is last. She's no longer having any vomiting. Her potassium and magnesium continued to be placed. Afebrile. WBC is 3 Hgb 11.5 platelets 132 sodium is 132 potassium 3.2 creatinine 0.45 magnesium 1.6 Patient seen and examined with Dr. lee PHYSICAL EXAM: VITAL SIGNS: Reviewed. GENERAL: Well-developed in no acute distress. HEENT: No sclera icterus. Extraocular movements grossly intact. Moist buccal mucosa. Head is atraumatic, normocephalic. ABDOMEN: Soft. Nondistended. NEUROLOGIC: Alert and oriented. Cranial nerves II through XII grossly intact. ASSESSMENT: 1. Colitis with diarrhea 2. Dehydration 3. Nausea and vomiting likely due to electrolyte imbalance 4. Hypokalemia 5. Hypomagnesemia 6. History of sleep gastrectomy in August 2022 PLAN: -Advance diet to full liquids with crackers -Continue IV steroids and IV antibiotics for colitis -Would recommend GI service consult. However, GI service not available this week. Patient to follow up with GI service outpatient. -Continue to replace potassium and magnesium -Multivitamin bag ordered -Continue pain management -Continue IV fluids -Encouraged patient to increase activity level -DVT prophylaxis subcu heparin Physician Web Publisher note has been reviewed by physician. Signing provider agrees with the documented findings, assessment, and plan of care. Objective - Vital Signs Vital signs: Vital Signs Temp 97.9 F 10/24/22 14:00 Pulse 60 10/24/22 14:00 Resp 16 10/24/22 14:00 BP 155/83 10/24/22 14:00 Pulse Ox 98 10/24/22 14:00 FiO2 Intake & Output 10/23/22 10/24/22 10/24/22 18:59 06:59 18:59 Intake Total 150 Balance 150 Weight 105.687 kg Intake: IV 150 Other: Voiding Method Toilet # Voids 3 3 3 # Bowel Movements 3 - Labs CBC & Chem 7: 10/24/22 05:09 10/24/22 05:09 Labs: Abnormal Lab Results - Last 24 Hours (Table) 10/24/22 10/24/22 Range/Units 05:09 05:09 WBC 3.0 L (3.8-10.6) k/uL Hct 33.9 L (34.0-46.0) % Plt Count 132 L (150-450) k/uL Sodium 132 L (137-145) mmol/L Potassium 3.2 L (3.5-5.1) mmol/L BUN 5 L (7-17) mg/dL Creatinine 0.45 L (0.52-1.04) mg/dL Glucose 116 H (74-99) mg/dL Calcium 7.3 L (8.4-10.2) mg/dL
--- NOTE | 2022-10-24 18:49 | P.PN ---
Subjective Progress Note Date: 10/24/22 56-year-old lady with past medical history significant for hypertension, hyperlipidemia, presented to the ER because of persistent abdominal pain nausea and vomiting. Patient had on 08/[address] Armstrong. Patient Stated that she had been doing well, however around [place], she st arted to become ill. States that she has had persistent abdominal pain with nausea and vomiting. States abdominal pain is intermittent and is generalized all over the belly. Denies any altered bowel movements. Denies any blood in the stools. Denies any hematemesis. Patient saw Dr. Armstrong yesterday, who instructed her to come to the emergency department for admission. Hospitalist team has been consulted for medical management Objective - Vital Signs Vital signs: Vital Signs Temp 98.5 F 10/24/22 08:00 Pulse 67 10/24/22 08:00 Resp 16 10/24/22 08:00 BP 150/76 10/24/22 08:00 Pulse Ox 96 10/24/22 08:00 FiO2 Intake & Output 10/23/22 10/24/22 10/24/22 18:59 06:59 18:59 Intake Total 150 Balance 150 Weight 105.687 kg Intake: IV 150 Other: Voiding Method Toilet # Voids 3 3 # Bowel Movements 3 - Exam PHYSICAL EXAMINATION: GENERAL: The patient is alert and oriented x3, not in any acute distress. Well developed, well nourished. HEENT: Pupils are round and equally reacting to light. EOMI. No scleral icterus. No conjunctival pallor. Normocephalic, atraumatic. No pharyngeal erythema. No thyromegaly. CARDIOVASCULAR: S1 and S2 present. No murmurs, rubs, or gallops. PULMONARY: Chest is clear to auscultation, no wheezing or crackles. ABDOMEN: Soft, nontender, nondistended, normoactive bowel sounds. No palpable organomegaly. MUSCULOSKELETAL: No joint swelling or deformity. EXTREMITIES: No cyanosis, clubbing, or pedal edema. NEUROLOGICAL: Gross neurological examination did not reveal any focal deficits. SKIN: No rashes. - Labs CBC & Chem 7: 10/24/22 05:09 10/24/22 05:09 Labs: Abnormal Lab Results - Last 24 Hours (Table) 10/24/22 10/24/22 Range/Units 05:09 05:09 WBC 3.0 L (3.8-10.6) k/uL Hct 33.9 L (34.0-46.0) % Plt Count 132 L (150-450) k/uL Sodium 132 L (137-145) mmol/L Potassium 3.2 L (3.5-5.1) mmol/L BUN 5 L (7-17) mg/dL Creatinine 0.45 L (0.52-1.04) mg/dL Glucose 116 H (74-99) mg/dL Calcium 7.3 L (8.4-10.2) mg/dL Assessment and Plan Assessment: Assessment and plan Acute colitis Nausea and vomiting Abdominal pain History of sleeve gastrectomy Hypertension Hypokalemia Hypomagnesemia Plan; Monitor vital signs Monitor CBC Continue IV fluids EGD done showed gastritis Continue IV antibiotics Continue steroids per surgery Potassium replacement ordered Continue antiemetics Continue Protonix and Carafate Gen. surgery is on board.
[2022-10-25] MEDS: SODIUM CHLORIDE 0.9% 1,000 ML IV SCH ×3 (00:12→17:31)
[2022-10-25] MEDS: metroNIDAZOLE-NS PMX 500 MG in SALINE 1 100ML.BAG IVPB SCH ×3 (00:47→17:30)
[2022-10-25] MEDS: methylPREDNISolone SOD SUCCI 40 MG/ML 1 ML VIAL IV SCH ×3 (00:47→15:34)
[2022-10-25] MEDS: SUCRALFATE 1 GM TAB PO SCH ×3 (06:03→15:37)
[2022-10-25] MEDS: PANTOPRAZOLE 40 MG/10 ML VIAL IV SCH (08:56)
[2022-10-25] MEDS: HEPARIN SODIUM,PORCINE/PF 5,000 UNIT/0.5 ML SYRINGE SQ SCH ×2 (08:56→19:40)
[2022-10-25] MEDS: lisinopriL 10 MG TAB PO SCH (08:57)
[2022-10-25 09:16] LABS: Basophils # (A) 0.01 X 10*3/uL (0.00-0.10); Basophils % (A) 0.3 %; Eosinophils # (A) 0 X 10*3/uL (0.04-0.35); Eosinophils % (A) 0 %; HCT 32.3 % (37.2-46.3); HGB 10.6 g/dL (12.0-15.0); Immature Grans, Automated 1.4 %; Lymphocytes # (A) 0.46 X 10*3/uL (0.90-5.00); Lymphocytes % (A) 16.1 %; MCH 28.4 pg (27.0-32.0); MCHC 32.8 g/dL (32.0-37.0); MCV 86.6 fL (80.0-97.0); Mean Platelet Volume 9.7 fL (9.5-12.2); Monocytes % (A) 3.5 %; NRBC Per 100 WBC 0.7 /100 WBCS (0.0-0.0); Neutrophils # (A) 2.25 X 10*3/uL (1.80-7.70); Neutrophils % (A) 78.7 %; Platelet Count 130 X 10*3/uL (140-440); RBC 3.73 X 10*6/uL (4.10-5.20); RDW 14.3 % (11.5-14.5); WBC 2.86 X 10*3/uL (4.50-10.00)
[2022-10-25 09:27] LABS: African American GFR (CKD) 125.4 (60.0-200.0); Anion Gap 10.8 mmol/L (10.00-18.00); BUN/Creat Ratio 14.8 Ratio (12.00-20.00); Blood Urea Nitrogen 7.4 mg/dL (9.0-27.0); Calcium 8.2 mg/dL (8.7-10.3); Carbon Dioxide 27.2 mmol/L (20.0-27.5); Magnesium 2.1 mg/dL (1.5-2.4); Non-African American GFR(CKD) 108.2 (60.0-200.0); Potassium 3.3 mmol/L (3.5-5.5)
[2022-10-25] MEDS ORDERED: POTASSIUM CHLORIDE ER 20 MEQ TAB.ER PO SCH (11:00)
[2022-10-25] MEDS: LEVOFLOXACIN 500MG-D5W PMX 500 MG in DEXTROSE/WATER 1 100ML.BAG IVPB SCH (11:11)
[2022-10-25] MEDS: HYDROmorphone 0.5 MG/0.5 ML SYRINGE IVP PRN ×2 (11:12→19:40)
[2022-10-25] MEDS: POTASSIUM CHLORIDE 10 MEQ in WATER FOR INJECTION 1 100ML.BAG IVPB SCH ×4 (12:54→16:32)
--- NOTE | 2022-10-25 15:45 | P.PN ---
Subjective Progress Note Date: 10/25/22 CHIEF COMPLAINT: Colitis HISTORY OF PRESENT ILLNESS: The patient is a 56-year-old female status post s leeve gastrectomy for morbid obesity who presents multiple readmissions for dehydration. Patient had both upper and lower endoscopy with recent finding of colitis. She reports tolerating liquids. Her appetite has improved. She is to report intermittent heartburn. Yesterday she had dizziness which is now improved today. She has lost 70 pounds in 2 months from her sleeve gastrectomy. ROS: No reports of nausea and vomiting. No bowel movements. No fevers or chills. No new chest pain. No productive sputum. Morbid obesity due to excess calories, BMI 44.0 PHYSICAL EXAM: VITAL SIGNS: Reviewed CONSTITUTIONAL: Well developed and in no acute distress. EYES: Conjuctivae without sclera icterus. Extraocular movements grossly intact. HEAD, EARS, NOSE, THROAT: Moist buccal mucosa. Head is atraumatic, normocephalic. Hears conversational speech. No nasal drainage. RESPIRATORY: Non-labored respirations and equal bilateral excursions. CARDIOVASCULAR: Palpable 2+ radial pulses. ABDOMEN: Obese. No peritonitis. MUSCULOSKELETAL: No gross deformity of the lower extremities noted. No clubbing. No cyanosis. SKIN: Good skin turgor. Well perfused. NEUROLOGIC: Cranial nerves II through XII grossly intact. No focal or lateralizing signs. PSYCH: Appropriate affect. Alert and oriented to person, place and time. CLINICAL LABS: Reviewed. WBC trending downward, leukopenia 2.8. Anemia hemoglobin 11.5-10.6. Potassium low at 3.3 from 2.8. ASSESSMENT: 1. Colitis 2. Dehydration 3. Morbid obesity due to excess calories, BMI 44.0 4. Anemia 5. Persistent hypokalemia 6. Status post sleeve gastrectomy. PLAN: 1. Continue supportive measures 2. Treatment for hypokalemia with potassium supplementation Objective - Vital Signs Vital signs: Vital Signs Temp 97.9 F 10/25/22 07:24 Pulse 47 L 10/25/22 07:24 Resp 16 10/25/22 07:24 BP 131/62 10/25/22 07:24 Pulse Ox 96 10/25/22 07:24 FiO2 Intake & Output 10/24/22 10/25/22 10/25/22 18:59 06:59 18:59 Intake Total 150 Balance 150 Weight 105.687 kg Intake: Oral 150 Other: Voiding Method Toilet # Voids 1 3 - Labs CBC & Chem 7: 10/25/22 05:55 10/25/22 05:55 Labs: Abnormal Lab Results - Last 24 Hours (Table) 10/25/22 10/25/22 Range/Units 05:55 05:55 WBC 2.86 L (4.50-10.00) X 10*3/uL RBC 3.73 L (4.10-5.20) X 10*6/uL Hgb 10.6 L (12.0-15.0) g/dL Hct 32.3 L (37.2-46.3) % Plt Count 130 L (140-440) X 10*3/uL Absolute Nucleated RBC 0.02 H (0.00-0.00) X 10*3/uL Lymphocytes # 0.46 L (0.90-5.00) X 10*3/uL Monocytes # 0.10 L (0.20-1.00) X 10*3/uL Eosinophils # 0 L (0.04-0.35) X 10*3/uL NRBC/100 WBC Diff 0.7 H (0.0-0.0) /100 WBCS Potassium 3.3 L (3.5-5.5) mmol/L BUN 7.4 L (9.0-27.0) mg/dL Creatinine 0.5 L (0.6-1.5) mg/dL Calcium 8.2 L (8.7-10.3) mg/dL
--- NOTE | 2022-10-25 19:25 | P.PN ---
Subjective Progress Note Date: 10/25/22 56-year-old lady with past medical history significant for hypertension, hyperlipidemia, presented to the ER because of persistent abdominal pain nausea and vomiting. Patient had on 08/[address] Armstrong. Patient Stated that she had been doing well, however around [place], she st arted to become ill. States that she has had persistent abdominal pain with nausea and vomiting. States abdominal pain is intermittent and is generalized all over the belly. Denies any altered bowel movements. Denies any blood in the stools. Denies any hematemesis. Patient saw Dr. Armstrong yesterday, who instructed her to come to the emergency department for admission. Hospitalist team has been consulted for medical management 24-hour interval change 10/25/2022 Patient had both upper and lower endoscopy with recent finding of colitis. She reports tolerating liquids. Her appetite has improved. She is to report intermittent heartburn. Yesterday she had dizziness which is now improved today. She has lost 70 pounds in 2 months from her sleeve gastrectomy. No reports of nausea and vomiting. No bowel movements. No fevers or chills. No new chest pain. No productive sputum. Morbid obesity due to excess calories, BMI 44.0 Surgery on board and recommending to continue with supportive treatment; treat hypokalemia with potassium supplement Objective - Vital Signs Vital signs: Vital Signs Temp 98.1 F 10/25/22 13:43 Pulse 60 10/25/22 13:43 Resp 16 10/25/22 13:43 BP 168/83 10/25/22 13:43 Pulse Ox 99 10/25/22 13:43 FiO2 Intake & Output 10/24/22 10/25/22 10/25/22 18:59 06:59 18:59 Intake Total 210 Balance 210 Weight 105.687 kg Intake: Oral 210 Other: Voiding Method Toilet # Voids 1 3 - Exam PHYSICAL EXAMINATION: GENERAL: The patient is alert and oriented x3, not in any acute distress. Well developed, well nourished. HEENT: Pupils are round and equally reacting to light. EOMI. No scleral icterus. No conjunctival pallor. Normocephalic, atraumatic. No pharyngeal erythema. No thyromegaly. CARDIOVASCULAR: S1 and S2 present. No murmurs, rubs, or gallops. PULMONARY: Chest is clear to auscultation, no wheezing or crackles. ABDOMEN: Soft, nontender, nondistended, normoactive bowel sounds. No palpable organomegaly. MUSCULOSKELETAL: No joint swelling or deformity. EXTREMITIES: No cyanosis, clubbing, or pedal edema. NEUROLOGICAL: Gross neurological examination did not reveal any focal deficits. SKIN: No rashes. - Labs CBC & Chem 7: 10/25/22 05:55 10/25/22 05:55 Labs: Abnormal Lab Results - Last 24 Hours (Table) 10/25/22 10/25/22 Range/Units 05:55 05:55 WBC 2.86 L (4.50-10.00) X 10*3/uL RBC 3.73 L (4.10-5.20) X 10*6/uL Hgb 10.6 L (12.0-15.0) g/dL Hct 32.3 L (37.2-46.3) % Plt Count 130 L (140-440) X 10*3/uL Absolute Nucleated RBC 0.02 H (0.00-0.00) X 10*3/uL Lymphocytes # 0.46 L (0.90-5.00) X 10*3/uL Monocytes # 0.10 L (0.20-1.00) X 10*3/uL Eosinophils # 0 L (0.04-0.35) X 10*3/uL NRBC/100 WBC Diff 0.7 H (0.0-0.0) /100 WBCS Potassium 3.3 L (3.5-5.5) mmol/L BUN 7.4 L (9.0-27.0) mg/dL Creatinine 0.5 L (0.6-1.5) mg/dL Calcium 8.2 L (8.7-10.3) mg/dL Assessment and Plan Assessment: Assessment and plan Acute colitis Nausea and vomiting Abdominal pain History of sleeve gastrectomy Hypertension Hypokalemia Hypomagnesemia Plan; Monitor vital signs Monitor CBC Continue IV fluids EGD done showed gastritis Continue IV antibiotics Continue steroids per surgery Potassium replacement ordered Continue antiemetics Continue Protonix and Carafate Gen. surgery is on board.
[2022-10-26] MEDS: metroNIDAZOLE-NS PMX 500 MG in SALINE 1 100ML.BAG IVPB SCH ×4 (00:33→23:12)
[2022-10-26] MEDS: methylPREDNISolone SOD SUCCI 40 MG/ML 1 ML VIAL IV SCH ×4 (00:33→23:12)
[2022-10-26] MEDS: SODIUM CHLORIDE 0.9% 1,000 ML IV SCH ×4 (00:33→20:00)
[2022-10-26] MEDS: SUCRALFATE 1 GM TAB PO SCH ×3 (05:24→16:20)
[2022-10-26] MEDS: HEPARIN SODIUM,PORCINE/PF 5,000 UNIT/0.5 ML SYRINGE SQ SCH ×2 (08:02→19:56)
[2022-10-26] MEDS: PANTOPRAZOLE 40 MG/10 ML VIAL IV SCH (08:02)
[2022-10-26] MEDS: lisinopriL 10 MG TAB PO SCH (08:03)
[2022-10-26 10:14] LABS: African American GFR (CKD) 122.3 (60.0-200.0); Anion Gap 9.7 mmol/L (10.00-18.00); BUN/Creat Ratio 17.39 Ratio (12.00-20.00); Blood Urea Nitrogen 9.4 mg/dL (9.0-27.0); Calcium 8.5 mg/dL (8.7-10.3); Carbon Dioxide 26.9 mmol/L (20.0-27.5); Non-African American GFR(CKD) 105.5 (60.0-200.0); Potassium 3.6 mmol/L (3.5-5.5)
[2022-10-26] MEDS: ONDANSETRON 4 MG/2 ML VIAL IVP PRN ×2 (11:55→19:56)
[2022-10-26] MEDS: HYDROmorphone 0.5 MG/0.5 ML SYRINGE IVP PRN ×2 (11:56→21:17)
[2022-10-26] MEDS: LEVOFLOXACIN 500MG-D5W PMX 500 MG in DEXTROSE/WATER 1 100ML.BAG IVPB SCH (13:13)
--- NOTE | 2022-10-26 16:17 | P.PN ---
Subjective Progress Note Date: 10/26/22 CHIEF COMPLAINT: Colitis HISTORY OF PRESENT ILLNESS: The patient is a 56-year-old female status post s leeve gastrectomy for morbid obesity who presents multiple readmissions for dehydration. Patient had both upper and lower endoscopy with recent finding of colitis. She reports feeling much better today. She is tolerating liquids. She is having bowel movements. ROS: No reports of nausea and vomiting. No fevers or chills. No new chest pain. No productive sputum. Morbid obesity due to excess calories, BMI 44.0. Persistent hypokalemia during admission. She complains of numbness of the lower body and chest PHYSICAL EXAM: VITAL SIGNS: Reviewed CONSTITUTIONAL: Well developed and in no acute distress. EYES: Conjuctivae without sclera icterus. Extraocular movements grossly intact. HEAD, EARS, NOSE, THROAT: Moist buccal mucosa. Head is atraumatic, normocephalic. Hears conversational speech. No nasal drainage. RESPIRATORY: Non-labored respirations and equal bilateral excursions. CARDIOVASCULAR: Palpable 2+ radial pulses. ABDOMEN: Obese. No peritonitis. MUSCULOSKELETAL: No gross deformity of the lower extremities noted. No clubbing. No cyanosis. SKIN: Good skin turgor. Well perfused. NEUROLOGIC: Cranial nerves II through XII grossly intact. No focal or lateralizing signs. PSYCH: Appropriate affect. Alert and oriented to person, place and time. CLINICAL LABS: Reviewed. Hemoglobin improved to 3.5. ASSESSMENT: 1. Colitis 2. Dehydration 3. Morbid obesity due to excess calories, BMI 44.0 4. Anemia 5. Persistent hypokalemia 6. Status post sleeve gastrectomy. PLAN: 1. I discussed with her increasing potassium rich foods in her diet for potassium level of 4.0. Additional potassium supplementation ordered 2. Recommend thiamine level due to persistent nausea and vomiting and diffuse numbness of the body for risk of thiamine deficiency Objective - Vital Signs Vital signs: Vital Signs Temp 97.5 F L 10/26/22 14:00 Pulse 54 L 10/26/22 14:00 Resp 16 10/26/22 14:00 BP 137/74 10/26/22 14:00 Pulse Ox 95 10/26/22 14:00 FiO2 Intake & Output 10/25/22 10/26/22 10/26/22 18:59 06:59 18:59 Intake Total 240 Balance 240 Intake: Oral 240 Other: Voiding Method Toilet Toilet # Voids 2 3 - Labs CBC & Chem 7: 10/25/22 05:55 10/26/22 05:12 Labs: Abnormal Lab Results - Last 24 Hours (Table) 10/26/22 Range/Units 05:12 Anion Gap 9.70 L (10.00-18.00) mmol/L Creatinine 0.5 L (0.6-1.5) mg/dL Calcium 8.5 L (8.7-10.3) mg/dL
[2022-10-26] MEDS: POTASSIUM CHLORIDE 10 MEQ in WATER FOR INJECTION 1 100ML.BAG IVPB SCH ×4 (17:18→21:17)
--- NOTE | 2022-10-26 19:01 | P.PN ---
Subjective Progress Note Date: 10/26/22 Principal diagnosis: Acute colitis Status post EGD which reveals gastritis 56-year-old lady with past medical history significant for hypertension, hyper lipidemia, presented to the ER because of persistent abdominal pain nausea and vomiting. Patient had on 08/[address] Armstrong. Patient Stated that she had been doing well, however around [place], she started to become ill. States that she has had persistent abdominal pain with nausea and vomiting. States abdominal pain is intermittent and is generalized all over the belly. Denies any altered bowel movements. Denies any blood in the stools. Denies any hematemesis. Patient saw Dr. Armstrong yesterday, who instructed her to come to the emergency department for admission. Hospitalist team has been consulted for medical management 24-hour interval change 10/26/2022 56-year-old female status post sleeve gastrectomy for morbid obesity who presents multiple readmissions for dehydration. Patient had both upper and lower endoscopy with recent finding of colitis. She reports feeling much better today. She is tolerating liquids. She is having bowel movements. Patient had both upper and lower endoscopy with recent finding of colitis. She reports tolerating liquids. Her appetite has improved. She is to report intermittent heartburn. Yesterday she had dizziness which is now improved today. She has lost 70 pounds in 2 months from her sleeve gastrectomy. No reports of nausea and vomiting. No bowel movements. No fevers or chills. No new chest pain. No productive sputum. Morbid obesity due to excess calories, BMI 44.0 Surgery on board and recommending to continue with supportive treatment; treat hypokalemia with potassium supplement Objective - Vital Signs Vital signs: Vital Signs Temp 97.8 F 10/26/22 07:31 Pulse 46 L 10/26/22 07:31 Resp 14 10/26/22 07:31 BP 131/81 10/26/22 07:31 Pulse Ox 94 L 10/26/22 07:31 FiO2 Intake & Output 10/25/22 10/26/22 10/26/22 18:59 06:59 18:59 Intake Total 240 Balance 240 Intake: Oral 240 Other: Voiding Method Toilet Toilet # Voids 2 3 - Exam PHYSICAL EXAMINATION: GENERAL: The patient is alert and oriented x3, not in any acute distress. Well developed, well nourished. HEENT: Pupils are round and equally reacting to light. EOMI. No scleral icterus. No conjunctival pallor. Normocephalic, atraumatic. No pharyngeal erythema. No thyromegaly. CARDIOVASCULAR: S1 and S2 present. No murmurs, rubs, or gallops. PULMONARY: Chest is clear to auscultation, no wheezing or crackles. ABDOMEN: Soft, nontender, nondistended, normoactive bowel sounds. No palpable organomegaly. MUSCULOSKELETAL: No joint swelling or deformity. EXTREMITIES: No cyanosis, clubbing, or pedal edema. NEUROLOGICAL: Gross neurological examination did not reveal any focal deficits. SKIN: No rashes. - Labs CBC & Chem 7: 10/25/22 05:55 10/26/22 05:12 Labs: Abnormal Lab Results - Last 24 Hours (Table) 10/26/22 Range/Units 05:12 Anion Gap 9.70 L (10.00-18.00) mmol/L Creatinine 0.5 L (0.6-1.5) mg/dL Calcium 8.5 L (8.7-10.3) mg/dL Assessment and Plan Assessment: Assessment and plan Acute colitis Nausea and vomiting Abdominal pain History of sleeve gastrectomy Hypertension Hypokalemia Hypomagnesemia Plan; Monitor vital signs Monitor CBC Continue IV fluids EGD done showed gastritis Continue IV antibiotics Continue steroids per surgery Potassium replacement ordered Continue antiemetics Continue Protonix and Carafate Gen. surgery is on board.
[2022-10-27] MEDS: HYDROmorphone 0.5 MG/0.5 ML SYRINGE IVP PRN ×4 (00:38→23:57)
[2022-10-27] MEDS: SUCRALFATE 1 GM TAB PO SCH ×3 (06:29→17:35)
[2022-10-27 09:03] LABS: African American GFR (CKD) 118.1 (60.0-200.0); Anion Gap 8.4 mmol/L (10.00-18.00); BUN/Creat Ratio 18.17 Ratio (12.00-20.00); Blood Urea Nitrogen 10.9 mg/dL (9.0-27.0); Calcium 8.3 mg/dL (8.7-10.3); Carbon Dioxide 26.6 mmol/L (20.0-27.5); Non-African American GFR(CKD) 101.9 (60.0-200.0); Potassium 4.1 mmol/L (3.5-5.5)
[2022-10-27] MEDS: SODIUM CHLORIDE 0.9% 1,000 ML IV SCH ×3 (09:18→23:57)
[2022-10-27] MEDS: methylPREDNISolone SOD SUCCI 40 MG/ML 1 ML VIAL IV SCH ×3 (09:19→23:58)
[2022-10-27] MEDS: metroNIDAZOLE-NS PMX 500 MG in SALINE 1 100ML.BAG IVPB SCH ×3 (09:20→23:58)
[2022-10-27] MEDS: lisinopriL 10 MG TAB PO SCH (09:20)
[2022-10-27] MEDS: PANTOPRAZOLE 40 MG/10 ML VIAL IV SCH (09:20)
[2022-10-27] MEDS: HEPARIN SODIUM,PORCINE/PF 5,000 UNIT/0.5 ML SYRINGE SQ SCH ×2 (09:25→20:49)
--- NOTE | 2022-10-27 12:29 | P.PN ---
Subjective Progress Note Date: 10/27/22 CHIEF COMPLAINT: Dysphagia HISTORY OF PRESENT ILLNESS: Patient's oral intake is still decreased. Patient reports that she can eat about 2 ounces of food. And she spent regurgitates about half pounds. She still feels bloated. Her stools are loose but becoming more formed and less frequent. Afebrile. Sodium 136 potassium 4.1 creatinine 0.6 magnesium 2.1 EGD biopsy had shown gastritis. PHYSICAL EXAM: VITAL SIGNS: Reviewed. GENERAL: Well-developed in no acute distress. HEENT: No sclera icterus. Extraocular movements grossly intact. Moist buccal mucosa. Head is atraumatic, normocephalic. ABDOMEN: Soft. Nondistended. NEUROLOGIC: Alert and oriented. Cranial nerves II through XII grossly intact. ASSESSMENT: 1. Colitis with diarrhea 2. Dehydration 3. Nausea and vomiting likely due to electrolyte imbalance 4. Hypokalemia 5. Hypomagnesemia 6. History of sleeve gastrectomy in August 2022 PLAN: -Continue Full liquids -Continue IV steroids and IV antibiotics for colitis -Continue IV fluids -Thiamine level pending -Encouraged patient to increase activity level -DVT prophylaxis subcu heparin Physician Shotgun Shell Assembly Machine Operator note has been reviewed by physician. Signing provider agrees with the documented findings, assessment, and plan of care. Objective - Vital Signs Vital signs: Vital Signs Temp 97.5 F L 10/27/22 08:00 Pulse 41 L 10/27/22 08:00 Resp 12 10/27/22 08:00 BP 141/65 10/27/22 08:00 Pulse Ox 96 10/27/22 08:00 FiO2 Intake & Output 10/26/22 10/27/22 10/27/22 18:59 06:59 18:59 Other: Voiding Method Toilet Toilet # Voids 5 2 # Bowel Movements 1 - Labs CBC & Chem 7: 10/25/22 05:55 10/27/22 05:34 Labs: Abnormal Lab Results - Last 24 Hours (Table) 10/27/22 Range/Units 05:34 Anion Gap 8.40 L (10.00-18.00) mmol/L Glucose 113 H (70-110) mg/dL Calcium 8.3 L (8.7-10.3) mg/dL
--- NOTE | 2022-10-27 13:20 | P.PN ---
Subjective 56-year-old lady with past medical history significant for hypertension, hyperlipidemia, presented to the ER because of persistent abdominal pain nausea and vomiting. Patient had on 08/[address] Armstrong. Patient Stated that she had been doing well, however around [place], she started to become ill. States that she has had persistent abdominal pain with nausea and vomiting. States abdominal pain is intermittent and is generalized all over the belly. Denies any altered bowel movements. Denies any blood in the stools. Denies any hematemesis. Patient saw Dr. Armstrong yesterday, who instructed her to come to the emergency department for admission. Hospitalist team has been consulted for medical management 24-hour interval change 10/26/2022 56-year-old female status post sleeve gastrectomy for morbid obesity who presents multiple readmissions for dehydration. Patient had both upper and lower endoscopy with recent finding of colitis. She reports feeling much better today. She is tolerating liquids. She is having bowel movements. Patient had both upper and lower endoscopy with recent finding of colitis. She reports tolerating liquids. Her appetite has improved. She is to report intermittent heartburn. Yesterday she had dizziness which is now improved today. She has lost 70 pounds in 2 months from her sleeve gastrectomy. No reports of nausea and vomiting. No bowel movements. No fevers or chills. No new chest pain. No productive sputum. Morbid obesity due to excess calories, BMI 44.0 Surgery on board and recommending to continue with supportive treatment; treat hypokalemia with potassium supplement 10/27/2022 This is a pleasant 56 years old female who presents initially with signs symptoms of acute colitis, infectious source is suspected. Patient currently placed on IV Levaquin and Flagyl She had EGD and per report showing no significant abnormality with sigmoid colonoscopy showing large amount of liquid stool. However biopsies showing mild chronic gastritis and benign rectal mucosa with hyperplastic changes. Patient also receiving Solu-Medrol 20 mg 3 times a day and normal saline at 1 30 mL/h She is bradycardic with heart rate around 41, she is not on beta sarah but she receives IV Dilaudid. Objective - Vital Signs Vital signs: Vital Signs Temp 97.5 F L 10/27/22 08:00 Pulse 41 L 10/27/22 08:00 Resp 12 10/27/22 08:00 BP 141/65 10/27/22 08:00 Pulse Ox 96 10/27/22 08:00 FiO2 Intake & Output 10/26/22 10/27/22 10/27/22 18:59 06:59 18:59 Other: Voiding Method Toilet Toilet # Voids 5 2 # Bowel Movements 1 - Exam -GENERAL: The patient is alert and oriented x3, not in any acute distress. Obese HEENT: Pupils are round and equally reacting to light. EOMI. No scleral icterus. No conjunctival pallor. Normocephalic, atraumatic. No pharyngeal erythema. No thyromegaly. CARDIOVASCULAR: S1 and S2 present. No murmurs, rubs, or gallops. PULMONARY: Chest is clear to auscultation, no wheezing or crackles. ABDOMEN: Soft, nontender, nondistended, normoactive bowel sounds. No palpable organomegaly. MUSCULOSKELETAL: No joint swelling or deformity. EXTREMITIES: No cyanosis, clubbing, or pedal edema. NEUROLOGICAL: Gross neurological examination did not reveal any focal deficits. SKIN: No rashes. no petechiae. - Labs CBC & Chem 7: 10/25/22 05:55 10/27/22 05:34 Labs: Abnormal Lab Results - Last 24 Hours (Table) 10/23/22 10/27/22 Range/Units 05:32 05:34 Anion Gap 8.40 L (10.00-18.00) mmol/L Glucose 113 H (70-110) mg/dL Calcium 8.3 L (8.7-10.3) mg/dL Vitamin B1 14 L (38-122) ug/L Assessment and Plan Assessment: Acute colitis, patient with no fever or leukocytosis, suspicious for infectious source is low Nausea and vomiting secondary to above Symptomatic bradycardia History of sleeve gastrectomy on 08/19 Hypertension Hypokalemia Hypomagnesemia Plan: Continue with gentle hydration Recommend the use pain medication other than Dilaudid and monitor heart rate. Check TSH I agree with GI team evaluation continue with anti-emetic , currently on riglan and zofran per primary team Continue with liquid diet and advance as tolerated per surgery team under the Labs and medication were reviewed.. Continue same treatment. Continue with symptomatic treatment. Resume home medication. Monitor labs and vitals. DVT and GI prophylaxis. Further recommendations as per clinical course of the destiney ent DVT prophylaxis: Subcutaneous heparin GI Prophylaxis: Ppi and Carafate Prognosis is guarded Thank you for consulting us, follow-up
[2022-10-27] MEDS: LEVOFLOXACIN 500MG-D5W PMX 500 MG in DEXTROSE/WATER 1 100ML.BAG IVPB SCH (14:10)
[2022-10-28] MEDS: SUCRALFATE 1 GM TAB PO SCH ×3 (06:34→16:56)
[2022-10-28] MEDS: SODIUM CHLORIDE 0.9% 1,000 ML IV SCH ×3 (08:37→21:25)
[2022-10-28] MEDS: methylPREDNISolone SOD SUCCI 40 MG/ML 1 ML VIAL IV SCH ×2 (08:37→10:32)
[2022-10-28] MEDS: metroNIDAZOLE-NS PMX 500 MG in SALINE 1 100ML.BAG IVPB SCH ×4 (08:37→23:15)
[2022-10-28] MEDS: HEPARIN SODIUM,PORCINE/PF 5,000 UNIT/0.5 ML SYRINGE SQ SCH ×2 (08:38→21:24)
[2022-10-28] MEDS: PANTOPRAZOLE 40 MG/10 ML VIAL IV SCH ×2 (08:38→10:32)
[2022-10-28] MEDS: lisinopriL 10 MG TAB PO SCH (08:38)
--- NOTE | 2022-10-28 11:26 | CDI ---
Documentation Clarification Form Date: 10/28/2022 11:11:58 AM From: Abby Carrasco CCS, CCDS Admit Date: 10/23/2022 1:29:00 PM Patient Name: Carrol Hargrove Visit Number: [id number] Discharge Date: ATTENTION: The Clinical Documentation Specialists (CDI) and [facility] Coding Staff appreciate your assistance in clarifying documentation. Please respond to the clarification below the line at the bottom and electronically sign. The CDI & [facility] Coding staff will review the response and follow-up if needed. Please note: Queries are made part of the Legal Health Record. If you have any questions, please contact the author of this message via ITS. Dr. Edna Leavitt: Unspecified Anemia is documented in the 10/25 & 10/26 Surgeon's Progress notes. Additional specificity regarding the Type & Acuity of Anemia is requested. History/Risk Factors per the Medical Management Consult: Hypertension, Hyperlipidemia, Sleeve Gastrectomy 08/19/2022, DM (patient states no longer diabetic), Osteoarthritis, Sleep Apnea, uses CPAP; Former smoker. Clinical indicators: Presented to the ED on 10/21 with Abdominal Pain, postoperative complications. Had Sleeve Gastrectomy on 08/19/2022, doing well until about [place] time, became ill with persistent abdominal pain, nausea & vomiting. Sent to the ED by her surgeon. Admit with Abdominal Pain, Postoperative Complication. Hemoglobin 10/21: 14.7. 10/22: 12.3. 10/23: 11.2. 10/24: 11/5. 10/25: 10.6. Hematocrit 10/21: 43.2. 10/22: 37.0. 10/23: 34.8. 10/24: 33.9. 10/25: 32.3. Treatment 10/21: IV Zofran 4 mg x2, IV Protonix 40 mg x1, IV Dilaudid 0.5 mg x2; 1 mg q3H/prn (severe pain); IV Na Chloride 2,000 mls @ 999 mls/hr q2H, 1,000 mls @ 130 mls/hr q7H. Home meds: Zestril, Carafate, Protonix, Zofran, Reglan 10/23 Procedures: EGD w/biopsy & Sigmoid colonoscopy w/biopsy: Antral Gastritis, Rectal biopsy. 10/23 Final pathology: Stomach: Mild chronic gastritis. Rectum: Benign rectal mucosa with minute lymphoid aggregate & focal slight & suggestive hyperplastic change. 10/23 Treatment: IV Kcl 100 mls @ 100 mls/hr q1H, IV Levaquin 100 mls @ 100 mls/hr q24H, IV Solumedrol 20 mg q8H, IV Flagyl 100 mls @ 100 mls/hr q8H. Please clarify the Type & Acuity of Anemia: [ ] Chronic blood loss anemia [ ] Hemolytic anemia [ ] Drug induced anemia [ ] Nutritional anemia [ ] Anemia of chronic disease [ ] Unable to determine [ ] Other, please specify (Template Last Revised: November 2020) [ X ] Nutritional anemia, KM 10/31/22 @ 0548 MTDD
--- NOTE | 2022-10-28 11:39 | P.PN ---
Subjective 56-year-old lady with past medical history significant for hypertension, hyperlipidemia, presented to the ER because of persistent abdominal pain nausea and vomiting. Patient had on 08/[address] Armstrong. Patient Stated that she had been doing well, however around [place], she started to become ill. States that she has had persistent abdominal pain with nausea and vomiting. States abdominal pain is intermittent and is generalized all over the belly. Denies any altered bowel movements. Denies any blood in the stools. Denies any hematemesis. Patient saw Dr. Armstrong yesterday, who instructed her to come to the emergency department for admission. Hospitalist team has been consulted for medical management 24-hour interval change 10/26/2022 56-year-old female status post sleeve gastrectomy for morbid obesity who presents multiple readmissions for dehydration. Patient had both upper and lower endoscopy with recent finding of colitis. She reports feeling much better today. She is tolerating liquids. She is having bowel movements. Patient had both upper and lower endoscopy with recent finding of colitis. She reports tolerating liquids. Her appetite has improved. She is to report intermittent heartburn. Yesterday she had dizziness which is now improved today. She has lost 70 pounds in 2 months from her sleeve gastrectomy. No reports of nausea and vomiting. No bowel movements. No fevers or chills. No new chest pain. No productive sputum. Morbid obesity due to excess calories, BMI 44.0 Surgery on board and recommending to continue with supportive treatment; treat hypokalemia with potassium supplement 10/27/2022 This is a pleasant 56 years old female who presents initially with signs symptoms of acute colitis, infectious source is suspected. Patient currently placed on IV Levaquin and Flagyl She had EGD and per report showing no significant abnormality with sigmoid colonoscopy showing large amount of liquid stool. However biopsies showing mild chronic gastritis and benign rectal mucosa with hyperplastic changes. Patient also receiving Solu-Medrol 20 mg 3 times a day and normal saline at 1 30 mL/h She is bradycardic with heart rate around 41, she is not on beta sarah but she receives IV Dilaudid. 10/28/2022 Patient tolerates diet better than yesterday, she ate her automated but she could not finish it because she had bad nausea, patient did not follow-up. Abdominal pain feels better. She had bowel movement yesterday, the total amount, not liquidy anymore. No other new complaints. She is hemodynamically stable, slightly bradycardic. We'll check labs and TSH tomorrow procalcitonin 0.04. GI team were consulted She is on antibiotics and steroids prior surgery team. Also she is on normal saline at 1 30 mL/h Objective - Vital Signs Vital signs: Vital Signs Temp 97.5 F L 10/28/22 08:00 Pulse 47 L 10/28/22 08:00 Resp 16 10/28/22 08:00 BP 156/68 10/28/22 08:00 Pulse Ox 98 10/28/22 08:00 FiO2 Intake & Output 10/27/22 10/28/22 10/28/22 18:59 06:59 18:59 Weight 105.687 kg Other: Voiding Method Toilet # Voids 3 2 # Bowel Movements 0 - Exam -GENERAL: The patient is alert and oriented x3, not in any acute distress. Obese HEENT: Pupils are round and equally reacting to light. EOMI. No scleral icterus. No conjunctival pallor. Normocephalic, atraumatic. No pharyngeal erythema. No t hyromegaly. CARDIOVASCULAR: S1 and S2 present. No murmurs, rubs, or gallops. PULMONARY: Chest is clear to auscultation, no wheezing or crackles. ABDOMEN: Soft, nontender, nondistended, normoactive bowel sounds. No palpable organomegaly. MUSCULOSKELETAL: No joint swelling or deformity. EXTREMITIES: No cyanosis, clubbing, or pedal edema. NEUROLOGICAL: Gross neurological examination did not reveal any focal deficits. SKIN: No rashes. no petechiae. - Labs CBC & Chem 7: 10/25/22 05:55 10/27/22 05:34 Labs: Abnormal Lab Results - Last 24 Hours (Table) 10/23/22 Range/Units 05:32 Vitamin B1 14 L (38-122) ug/L Assessment and Plan Assessment: Acute colitis, patient with no fever or leukocytosis, suspicious for infectious source is low Nausea and vomiting secondary to above Symptomatic bradycardia History of sleeve gastrectomy on 08/19 Hypertension Hypokalemia Hypomagnesemia Plan: Continue with gentle hydration Recommend the use pain medication other than Dilaudid and monitor heart rate. Check TSH I agree with GI team evaluation Replacement thiamin continue with anti-emetic , currently on riglan and zofran per primary team Continue with liquid diet and advance as tolerated per surgery team under the Labs and medication were reviewed.. Continue same treatment. Continue with symptomatic treatment. Resume home medication. Monitor labs and vitals. DVT and GI prophylaxis. Further recommendations as per clinical course of the patient DVT prophylaxis: Subcutaneous heparin GI Prophylaxis: Ppi and Carafate Prognosis is guarded Thank you for consulting us, follow-up
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
--- NOTE | 2022-10-28 12:45 | P.PN ---
Subjective Progress Note Date: 10/28/22 CHIEF COMPLAINT: Dysphagia HISTORY OF PRESENT ILLNESS: Patient is tolerating diet better today. She's had no further vomiting. She did have a smear of blood in her stool this morning. Afebrile. No new labs. Nurses having difficulty restarting patient IV. Patient seen by GI service. Thiamine low at 14 Patient seen and examined with Dr. lee PHYSICAL EXAM: VITAL SIGNS: Reviewed. GENERAL: Well-developed in no acute distress. HEENT: No sclera icterus. Extraocular movements grossly intact. Moist buccal mucosa. Head is atraumatic, normocephalic. ABDOMEN: Soft. Nondistended. NEUROLOGIC: Alert and oriented. Cranial nerves II through XII grossly intact. ASSESSMENT: 1. Colitis with diarrhea 2. Dehydration 3. Nausea and vomiting likely due to electrolyte imbalance 4. Hypokalemia 5. Hypomagnesemia 6. History of sleeve gastrectomy in August 2022 PLAN: -Advance diet to regular -Patient scheduled for colonoscopy on with Dr. lee -Start GoLYTELY bowel prep tomorrow -Continue IV steroids and IV antibiotics for colitis -Continue IV fluids -Medicine service has started IV thiamine -Midline ordered for IV access -Encouraged patient to increase activity level -DVT prophylaxis subcu heparin Physician Processing Operator note has been reviewed by physician. Signing provider agrees with the documented findings, assessment, and plan of care. Objective - Vital Signs Vital signs: Vital Signs Temp 97.5 F L 10/28/22 08:00 Pulse 47 L 10/28/22 08:00 Resp 16 10/28/22 08:00 BP 156/68 10/28/22 08:00 Pulse Ox 98 10/28/22 08:00 FiO2 Intake & Output 10/27/22 10/28/22 10/28/22 18:59 06:59 18:59 Weight 105.687 kg Other: Voiding Method Toilet # Voids 3 2 # Bowel Movements 0 - Labs CBC & Chem 7: 10/25/22 05:55 10/27/22 05:34
[2022-10-28] MEDS: THIAMINE 100 MG/ML 2 ML VIAL IVP SCH (13:52)
[2022-10-28] MEDS: LEVOFLOXACIN 500MG-D5W PMX 500 MG in DEXTROSE/WATER 1 100ML.BAG IVPB SCH (13:52)
[2022-10-28] MEDS: HYDROmorphone 0.5 MG/0.5 ML SYRINGE IVP PRN (21:24)
[2022-10-29] MEDS: SODIUM CHLORIDE 0.9% 1,000 ML IV SCH ×3 (05:30→20:47)
[2022-10-29] MEDS: SUCRALFATE 1 GM TAB PO SCH ×3 (05:39→17:08)
[2022-10-29] MEDS: HYDROmorphone 0.5 MG/0.5 ML SYRINGE IVP PRN ×3 (05:42→20:43)
[2022-10-29] MEDS: HEPARIN SODIUM,PORCINE/PF 5,000 UNIT/0.5 ML SYRINGE SQ SCH ×2 (08:04→20:44)
[2022-10-29] MEDS: lisinopriL 10 MG TAB PO SCH (08:04)
[2022-10-29] MEDS: PANTOPRAZOLE 40 MG/10 ML VIAL IV SCH (08:04)
[2022-10-29] MEDS: metroNIDAZOLE-NS PMX 500 MG in SALINE 1 100ML.BAG IVPB SCH ×3 (08:04→23:40)
[2022-10-29] MEDS: THIAMINE 100 MG/ML 2 ML VIAL IVP SCH (08:05)
[2022-10-29] MEDS ORDERED: PEG 3350 (236 GM/BTL) + LYTES 4,000 ML BOTTLE PO ONE (09:00)
[2022-10-29 10:43] LABS: Basophils # (A) 0.02 X 10*3/uL (0.00-0.10); Basophils % (A) 0.5 %; Eosinophils # (A) 0.01 X 10*3/uL (0.04-0.35); Eosinophils % (A) 0.2 %; HCT 35.7 % (37.2-46.3); HGB 11.8 g/dL (12.0-15.0); Immature Grans, Automated 3.9 %; Lymphocytes # (A) 1.36 X 10*3/uL (0.90-5.00); Lymphocytes % (A) 33.1 %; MCH 29.2 pg (27.0-32.0); MCHC 33.1 g/dL (32.0-37.0); MCV 88.4 fL (80.0-97.0); Mean Platelet Volume 9.9 fL (9.5-12.2); Monocytes % (A) 7.3 %; NRBC Per 100 WBC 0 /100 WBCS (0.0-0.0); Neutrophils # (A) 2.26 X 10*3/uL (1.80-7.70); Platelet Count 147 X 10*3/uL (140-440); RBC 4.04 X 10*6/uL (4.10-5.20); RDW 15.4 % (11.5-14.5); WBC 4.11 X 10*3/uL (4.50-10.00)
[2022-10-29 11:12] LABS: African American GFR (CKD) 118.1 (60.0-200.0); Anion Gap 9.4 mmol/L (10.00-18.00); BUN/Creat Ratio 14.17 Ratio (12.00-20.00); Blood Urea Nitrogen 8.5 mg/dL (9.0-27.0); Calcium 8.7 mg/dL (8.7-10.3); Carbon Dioxide 28.6 mmol/L (20.0-27.5); Non-African American GFR(CKD) 101.9 (60.0-200.0); Potassium 3.3 mmol/L (3.5-5.5)
--- NOTE | 2022-10-29 12:10 | P.PN ---
Subjective Progress Note Date: 10/29/22 Principal diagnosis: Nausea and vomiting This is a 56-year-old female who presented to the emergency department one week ago with continued complaints of nausea and vomiting. She had been hospitalized October 05 and discharged on October 11 with similar complaints of nausea and vomiting. Patient states she had sleeve gastrectomy done with Dr. Armstrong on 08/19/2022. She states initially everything was fine she tolerated the procedure well however from on she had continued nausea with vomiting. She states she had a thick mucus that she Vomiting committed dif ficult for her to eat. She estimates approximately 50 pound weight loss since her surgery. During her admission she did have an EGD done on 10/10/[address] Montero that reported mild gastritis and a normal sleeve. She also had an upper GI that showed no leaks or obstruction. During this admission she had a CT of the abdomen and pelvis that reported esophageal dysmotility versus GERD as well as mild circumferential and colic wall thickening which could be filed infectious or inflammatory colitis. Patient states she did have diarrhea for about 4 days, nonbloody. On 10/23/2022 she underwent another EGD with findings of antral gastritis as well as a sigmoidoscopy with no abnormal findings. Sigmoidoscopy with biopsy reported minute lymphoid aggregate and focal slight suggestive hyperplastic changes negative for proctitis here to pull bowel disease or distant aplasia. She has been started on Carafate 1 g 3 times a day, Protonix 40 mg daily Zofran as needed as well as Reglan as needed. She states for last 2 days the nausea and vomiting have improved. However yesterday she reported having a small amount of bright red rectal bleeding. She states that she has gas pressure in her abdomen but no pain. On admission she was noted to to be hypokalemic and hyponatremic, which have been replaced. 10/29/2022: Patient seen and examined today for follow-up. No further nausea and vomiting. She has been transitioned to regular diet yesterday and states that she did well. Today she is on a clear liquid diet and prepping for colonoscopy tomorrow. No further rectal bleeding. Denies any abdominal pain currently. Objective - Vital Signs Vital signs: Vital Signs Temp 97.6 F 10/29/22 07:28 Pulse 50 L 10/29/22 07:28 Resp 20 10/29/22 07:28 BP 120/50 10/29/22 07:28 Pulse Ox 97 10/29/22 07:28 FiO2 Intake & Output 10/28/22 10/29/22 10/29/22 18:59 06:59 18:59 Intake Total 120 Balance 120 Intake: Oral 120 Other: Voiding Method Toilet Toilet # Voids 3 2 - Exam General appearance: The patient is alert, oriented, appears in no acute distress. HET: Head is normocephalic and atraumatic. Conjunctiva pink. Sclera anicteric. Neck: Supple without lymphadenopathy. Abdomen: Soft, nontender, nondistended with bowel sounds. No guarding or rigidity. Extremities: Normal skin color and turgor. No pedal edema Skin: No rashes, no jaundice Neurological: No focal deficits. Alert and oriented. - Labs CBC & Chem 7: 10/29/22 05:53 10/29/22 05:53 Assessment and Plan (1) Nausea & vomiting Narrative/Plan: 56-year-old female with a history of recent sleeve gastrectomy who initially was doing well after surgery for about 2 weeks then started having issues with thick mucus which caused her to have nausea and vomiting. She states then she was unable to eat or drink anything and keep anything down. She was hospitalized twice this month and has had 2 EGDs with no significant findings other than mild gastritis, sigmoidoscopy with no abnormal findings. She now is having some rectal bleeding so is scheduled for colonoscopy with Dr. quiroz. Unclear etiology of nausea and vomiting may look be secondary to a sleeve gastrectomy. Symptoms have improved since she has been hospitalized. She was noted to have hyponatremia as well as hyperkalemia which can contribute to the symptoms. CT of the abdomen and pelvis did report possible mild colitis. She was started on empiric antibiotics and steroids with improvement in symptoms. If patient with mild colitis likely infectious. Recommend discontinuing steroids. Current Visit: No Status: Acute Code(s): R11.2 - NAUSEA WITH VOMITING, UNSPECIFIED SNOMED Code(s): 45874115 (2) S/P gastric sleeve procedure Current Visit: No Status: Acute Code(s): Z90.3 - ACQUIRED ABSENCE OF STOMACH [PART OF] SNOMED Code(s): 734991522319485 Plan: 1. Continue symptomatic and supportive care 2. Recommend diet as tolerated 3. Continue antiemetics as needed 4. Recommend Protonix 40 mg daily 5. Recommend discontinuing Solu-Medrol 6. Patient is scheduled to undergo colonoscopy on with Dr. Armstrong Thank you for this consultation, we will sign off at this time. Dr. Annmarie Perez I agree with the dictator's note, documented as a scribe by Erica Angelo.
--- NOTE | 2022-10-29 12:39 | P.PN ---
Subjective 56-year-old lady with past medical history significant for hypertension, hyperlipidemia, presented to the ER because of persistent abdominal pain nausea and vomiting. Patient had on 08/[address] Armstrong. Patient Stated that she had been doing well, however around [place], she started to become ill. States that she has had persistent abdominal pain with nausea and vomiting. States abdominal pain is intermittent and is generalized all over the belly. Denies any altered bowel movements. Denies any blood in the stools. Denies any hematemesis. Patient saw Dr. Armstrong yesterday, who instructed her to come to the emergency department for admission. Hospitalist team has been consulted for medical management 24-hour interval change 10/26/2022 56-year-old female status post sleeve gastrectomy for morbid obesity who presents multiple readmissions for dehydration. Patient had both upper and lower endoscopy with recent finding of colitis. She reports feeling much better today. She is tolerating liquids. She is having bowel movements. Patient had both upper and lower endoscopy with recent finding of colitis. She reports tolerating liquids. Her appetite has improved. She is to report intermittent heartburn. Yesterday she had dizziness which is now improved today. She has lost 70 pounds in 2 months from her sleeve gastrectomy. No reports of nausea and vomiting. No bowel movements. No fevers or chills. No new chest pain. No productive sputum. Morbid obesity due to excess calories, BMI 44.0 Surgery on board and recommending to continue with supportive treatment; treat hypokalemia with potassium supplement 10/27/2022 This is a pleasant 56 years old female who presents initially with signs symptoms of acute colitis, infectious source is suspected. Patient currently placed on IV Levaquin and Flagyl She had EGD and per report showing no significant abnormality with sigmoid colonoscopy showing large amount of liquid stool. However biopsies showing mild chronic gastritis and benign rectal mucosa with hyperplastic changes. Patient also receiving Solu-Medrol 20 mg 3 times a day and normal saline at 1 30 mL/h She is bradycardic with heart rate around 41, she is not on beta sarah but she receives IV Dilaudid. 10/28/2022 Patient tolerates diet better than yesterday, she ate her automated but she could not finish it because she had bad nausea, patient did not follow-up. Abdominal pain feels better. She had bowel movement yesterday, the total amount, not liquidy anymore. No other new complaints. She is hemodynamically stable, slightly bradycardic. We'll check labs and TSH tomorrow procalcitonin 0.04. GI team were consulted She is on antibiotics and steroids prior surgery team. Also she is on normal saline at 1 30 mL/h 10/29/2022 Patient still on liquid diet with no vomiting and no significant abdominal pain or tenderness. She is planned to undergo colonoscopy tomorrow. Other than that she still mildly bradycardic, TSH is slightly elevated at 5.5 but normal free T4 1 0.1. We got to check echocardiogram. Patient does not seem to need steroids. Currently she is on antibiotic and normal saline at 1 30 mL/h Objective - Vital Signs Vital signs: Vital Signs Temp 97.6 F 10/29/22 07:28 Pulse 50 L 10/29/22 07:28 Resp 20 10/29/22 07:28 BP 120/50 10/29/22 07:28 Pulse Ox 97 10/29/22 07:28 FiO2 Intake & Output 10/28/22 10/29/22 10/29/22 18:59 06:59 18:59 Intake Total 120 Balance 120 Weight 105.687 kg Intake: Oral 120 Other: Voiding Method Toilet Toilet # Voids 3 2 - Exam -GENERAL: The patient is alert and oriented x3, not in any acute distress. Obese HEENT: Pupils are round and equally reacting to light. EOMI. No scleral icterus. No conjunctival pallor. Normocephalic, atraumatic. No pharyngeal erythema. No thyromegaly. CARDIOVASCULAR: S1 and S2 present. No murmurs, rubs, or gallops. PULMONARY: Chest is clear to auscultation, no wheezing or crackles. ABDOMEN: Soft, nontender, nondistended, normoactive bowel sounds. No palpable organomegaly. MUSCULOSKELETAL: No joint swelling or deformity. EXTREMITIES: No cyanosis, clubbing, or pedal edema. NEUROLOGICAL: Gross neurological examination did not reveal any focal deficits. SKIN: No rashes. no petechiae. - Labs CBC & Chem 7: 10/29/22 05:53 10/29/22 05:53 Labs: Abnormal Lab Results - Last 24 Hours (Table) 10/29/22 10/29/22 Range/Units 05:53 05:53 WBC 4.11 L (4.50-10.00) X 10*3/uL RBC 4.04 L (4.10-5.20) X 10*6/uL Hgb 11.8 L (12.0-15.0) g/dL Hct 35.7 L (37.2-46.3) % RDW 15.4 H (11.5-14.5) % Immature Gran # 0.16 H (0.00-0.04) X 10*3/uL Eosinophils # 0.01 L (0.04-0.35) X 10*3/uL Potassium 3.3 L (3.5-5.5) mmol/L Carbon Dioxide 28.6 H (20.0-27.5) mmol/L Anion Gap 9.40 L (10.00-18.00) mmol/L BUN 8.5 L (9.0-27.0) mg/dL TSH 5.570 H (0.350-5.500) uIU/mL Assessment and Plan Assessment: Acute colitis, patient with no fever or leukocytosis, suspicious for infectious source is low Nausea and vomiting secondary to above Symptomatic bradycardia History of sleeve gastrectomy on 08/19 Hypertension Hypokalemia Hypomagnesemia Plan: Continue with gentle hydration Check echocardiogram GI team evaluation Follow-up colonoscopy result continue with anti-emetic , currently on riglan and zofran Continue with liquid diet and advance as tolerated per surgery team under the Labs and medication were reviewed.. Continue same treatment. Continue with symptomatic treatment. Resume home medication. Monitor labs and vitals. DVT and GI prophylaxis. Further recommendations as per clinical course of the patient DVT prophylaxis: Subcutaneous heparin GI Prophylaxis: Ppi and Carafate Prognosis is guarded Thank you for consulting us, follow-up
[2022-10-29] MEDS: LEVOFLOXACIN 500MG-D5W PMX 500 MG in DEXTROSE/WATER 1 100ML.BAG IVPB SCH (12:47)
[2022-10-29] MEDS ORDERED: POTASSIUM CHLORIDE ER 20 MEQ TAB.ER PO STA (13:56)
--- NOTE | 2022-10-29 13:58 | P.PN ---
Subjective Progress Note Date: 10/29/22 CHIEF COMPLAINT: Dysphagia HISTORY OF PRESENT ILLNESS: Patient reports she is feeling better today. Thia mine was started yesterday. She is starting a GoLYTELY bowel prep this morning. Has had no further nausea or vomiting. Denies any further blood in the stools. Afebrile. WBC 4.11 hemoglobin 11.8 platelets 147 sodium is 140 potassium 3.3 creatinine 0.6 GI service discontinued IV steroids Patient seen and examined with Dr. lee PHYSICAL EXAM: VITAL SIGNS: Reviewed. GENERAL: Well-developed in no acute distress. HEENT: No sclera icterus. Extraocular movements grossly intact. Moist buccal mucosa. Head is atraumatic, normocephalic. ABDOMEN: Soft. Nondistended. NEUROLOGIC: Alert and oriented. Cranial nerves II through XII grossly intact. ASSESSMENT: 1. Colitis with diarrhea 2. Dehydration 3. Nausea and vomiting likely due to electrolyte imbalance 4. Hypokalemia 5. Hypomagnesemia 6. History of sleeve gastrectomy in August 2022 7. Thiamine deficiency. Level low at 14 PLAN: -Patient scheduled for EGD and colonoscopy tomorrow with Dr. lee -Continue GoLYTELY bowel prep -Clear liquid diet today -Nothing by mouth after midnight -Increase IV thiamine to 200 mg every 12 hours -Replace potassium -Check magnesium level -Advance diet to regular -Patient scheduled for colonoscopy on with Dr. lee -Start GoLYTELY bowel prep tomorrow -Continue IV antibiotics for colitis -Continue IV fluids -Encouraged patient to increase activity level -DVT prophylaxis subcu heparin Physician Hardware Installer note has been reviewed by physician. Signing provider agrees with the documented findings, assessment, and plan of care. Objective - Vital Signs Vital signs: Vital Signs Temp 97.6 F 10/29/22 07:28 Pulse 50 L 10/29/22 07:28 Resp 20 10/29/22 07:28 BP 120/50 10/29/22 07:28 Pulse Ox 97 10/29/22 07:28 FiO2 Intake & Output 10/28/22 10/29/22 10/29/22 18:59 06:59 18:59 Intake Total 120 Balance 120 Weight 105.687 kg Intake: Oral 120 Other: Voiding Method Toilet Toilet # Voids 3 2 - Labs CBC & Chem 7: 10/29/22 05:53 10/29/22 05:53 Labs: Abnormal Lab Results - Last 24 Hours (Table) 10/29/22 10/29/22 Range/Units 05:53 05:53 WBC 4.11 L (4.50-10.00) X 10*3/uL RBC 4.04 L (4.10-5.20) X 10*6/uL Hgb 11.8 L (12.0-15.0) g/dL Hct 35.7 L (37.2-46.3) % RDW 15.4 H (11.5-14.5) % Immature Gran # 0.16 H (0.00-0.04) X 10*3/uL Eosinophils # 0.01 L (0.04-0.35) X 10*3/uL Potassium 3.3 L (3.5-5.5) mmol/L Carbon Dioxide 28.6 H (20.0-27.5) mmol/L Anion Gap 9.40 L (10.00-18.00) mmol/L BUN 8.5 L (9.0-27.0) mg/dL TSH 5.570 H (0.350-5.500) uIU/mL
[2022-10-29] MEDS: THIAMINE 200 MG in SODIUM CHLORIDE 0.9% 100 ML IVPB SCH (20:43)
[2022-10-30] MEDS: SUCRALFATE 1 GM TAB PO SCH ×4 (05:40→17:27)
[2022-10-30] MEDS: SODIUM CHLORIDE 0.9% 1,000 ML IV SCH ×3 (05:41→20:39)
[2022-10-30 06:09] LABS: African American GFR (CKD) >90 (>60 ml/min/1.73 sqM); Anion Gap 3 mmol/L; Blood Urea Nitrogen 6 mg/dL (7-17); Calcium 8.5 mg/dL (8.4-10.2); Carbon Dioxide 36 mmol/L (22-30); Chloride 99 mmol/L (98-107); Glucose 80 mg/dL (74-99); Non-African American GFR(CKD) >90 (>60 ml/min/1.73 sqM); Potassium 3.9 mmol/L (3.5-5.1); Sodium 138 mmol/L (137-145)
[2022-10-30 06:13] LABS: Anisocytosis Slight; HCT 40.5 % (34.0-46.0); HGB 13.3 gm/dL (11.4-16.0); MCH 29.1 pg (25.0-35.0); MCHC 32.8 g/dL (31.0-37.0); MCV 88.9 fL (80.0-100.0); Mean Platelet Volume 7.1; Platelet Count 136 k/uL (150-450); RBC 4.56 m/uL (3.80-5.40); RDW 16.4 % (11.5-15.5); WBC 4.3 k/uL (3.8-10.6)
[2022-10-30] MEDS: metroNIDAZOLE-NS PMX 500 MG in SALINE 1 100ML.BAG IVPB SCH ×2 (09:03→16:44)
[2022-10-30] MEDS: PANTOPRAZOLE 40 MG/10 ML VIAL IV SCH (09:04)
[2022-10-30] MEDS: lisinopriL 10 MG TAB PO SCH (09:05)
[2022-10-30] MEDS: HEPARIN SODIUM,PORCINE/PF 5,000 UNIT/0.5 ML SYRINGE SQ SCH ×2 (09:05→20:37)
[2022-10-30] MEDS: THIAMINE 200 MG in SODIUM CHLORIDE 0.9% 100 ML IVPB SCH ×2 (10:26→20:38)
[2022-10-30] MEDS ORDERED: PROPOFOL 10 MG/ML 20 ML VIAL IV ONE (10:36)
[2022-10-30] MEDS ORDERED: IV FLUID CONTINUATION 1,000 ML IV ONE (10:41)
--- NOTE | 2022-10-30 10:52 | P.OP ---
Date of Procedure: 10/30/22 Preoperative Diagnosis: Colitis Postoperative Diagnosis: Poor colon prep Sigmoid colon biopsy pending Procedure(s) Performed: Colonoscopy Anesthesia: MAC Surgeon: Sincere Armstrong Pathology: other (Sigmoid colon) Condition: stable Disposition: PACU Description of Procedure: Patient's placed on the endoscopy table in the lateral position her she received IV sedation. Digital rectal exam was performed. This revealed external hemorrhoids and a possible condyloma.. Flexible colonoscope was then placed patient anus and passed throughout the colon. The patient a very poor colon prep. The scope could not be advanced beyond the transverse colon. Scope was withdrawn. The distal transverse colon appeared normal however the mucosa view was quite limited due to poor prep. In the descending colon there is no ebonized seen. In the sigmoid colon there was a small area of irritation which was biopsied. Scope was brought back the rectum this appeared normal. Scope withdrawn for patient. There is no evidence of any GI bleed.
--- NOTE | 2022-10-30 11:42 | P.PN ---
Subjective 56-year-old lady with past medical history significant for hypertension, hyperlipidemia, presented to the ER because of persistent abdominal pain nausea and vomiting. Patient had on 08/[address] Armstrong. Patient Stated that she had been doing well, however around [place], she started to become ill. States that she has had persistent abdominal pain with nausea and vomiting. States abdominal pain is intermittent and is generalized all over the belly. Denies any altered bowel movements. Denies any blood in the stools. Denies any hematemesis. Patient saw Dr. Armstrong yesterday, who instructed her to come to the emergency department for admission. Hospitalist team has been consulted for medical management 24-hour interval change 10/26/2022 56-year-old female status post sleeve gastrectomy for morbid obesity who presents multiple readmissions for dehydration. Patient had both upper and lower endoscopy with recent finding of colitis. She reports feeling much better today. She is tolerating liquids. She is having bowel movements. Patient had both upper and lower endoscopy with recent finding of colitis. She reports tolerating liquids. Her appetite has improved. She is to report intermittent heartburn. Yesterday she had dizziness which is now improved today. She has lost 70 pounds in 2 months from her sleeve gastrectomy. No reports of nausea and vomiting. No bowel movements. No fevers or chills. No new chest pain. No productive sputum. Morbid obesity due to excess calories, BMI 44.0 Surgery on board and recommending to continue with supportive treatment; treat hypokalemia with potassium supplement 10/27/2022 This is a pleasant 56 years old female who presents initially with signs symptoms of acute colitis, infectious source is suspected. Patient currently placed on IV Levaquin and Flagyl She had EGD and per report showing no significant abnormality with sigmoid colonoscopy showing large amount of liquid stool. However biopsies showing mild chronic gastritis and benign rectal mucosa with hyperplastic changes. Patient also receiving Solu-Medrol 20 mg 3 times a day and normal saline at 1 30 mL/h She is bradycardic with heart rate around 41, she is not on beta sarah but she receives IV Dilaudid. 10/28/2022 Patient tolerates diet better than yesterday, she ate her automated but she could not finish it because she had bad nausea, patient did not follow-up. Abdominal pain feels better. She had bowel movement yesterday, the total amount, not liquidy anymore. No other new complaints. She is hemodynamically stable, slightly bradycardic. We'll check labs and TSH tomorrow procalcitonin 0.04. GI team were consulted She is on antibiotics and steroids prior surgery team. Also she is on normal saline at 1 30 mL/h 10/29/2022 Patient still on liquid diet with no vomiting and no significant abdominal pain or tenderness. She is planned to undergo colonoscopy tomorrow. Other than that she still mildly bradycardic, TSH is slightly elevated at 5.5 but normal free T4 1 0.1. We got to check echocardiogram. Patient does not seem to need steroids. Currently she is on antibiotic and normal saline at 1 30 mL/h 10/30/2022 The patient was nothing by mouth this morning before she was going for a colonoscopy, per to that she was tolerating liquid diet, no vomiting Still have some abdominal pain, she has a soft bowel movement Colonoscopy showed poor preparation however she has evidence of hemorrhoids and no abnormality was seen, no source of GI bleed is seen per reports. Her heart rate looks better ranging 59-61, EKG shows sinus bradycardia at 51 with QTC [address]-T changes and incomplete right bundle branch block Echocardiogram is ordered and is pending results reviewed She remains on IV family twice daily, also she is on Levaquin and Flagyl and normal saline Objective - Vital Signs Vital signs: Vital Signs Temp 98.2 F 10/30/22 08:00 Pulse 59 L 10/30/22 08:00 Resp 20 10/30/22 08:00 BP 131/71 10/30/22 08:00 Pulse Ox 98 10/30/22 08:00 FiO2 Intake & Output 10/29/22 10/30/22 10/30/22 18:59 06:59 18:59 Intake Total 360 100 Balance 360 100 Weight 105.687 kg Intake: IV 100 Oral 360 Other: Voiding Method Toilet Toilet Toilet # Voids 3 2 - Exam -GENERAL: The patient is alert and oriented x3, not in any acute distress. Obese HEENT: Pupils are round and equally reacting to light. EOMI. No scleral icterus. No conjunctival pallor. Normocephalic, atraumatic. No pharyngeal erythema. No thyromegaly. CARDIOVASCULAR: S1 and S2 present. No murmurs, rubs, or gallops. PULMONARY: Chest is clear to auscultation, no wheezing or crackles. ABDOMEN: Soft, nontender, nondistended, normoactive bowel sounds. No palpable organomegaly. MUSCULOSKELETAL: No joint swelling or deformity. EXTREMITIES: No cyanosis, clubbing, or pedal edema. NEUROLOGICAL: Gross neurological examination did not reveal any focal deficits. SKIN: No rashes. no petechiae. - Labs CBC & Chem 7: 10/30/22 05:47 10/30/22 05:47 Labs: Abnormal Lab Results - Last 24 Hours (Table) 10/29/22 10/30/22 10/30/22 Range/Units 05:53 05:47 05:47 RDW 16.4 H (11.5-15.5) % Plt Count 136 L (150-450) k/uL Potassium 3.3 L (3.5-5.5) mmol/L Carbon Dioxide 28.6 H 36 H (20.0-27.5) mmol/L Anion Gap 9.40 L (10.00-18.00) mmol/L BUN 8.5 L 6 L (9.0-27.0) mg/dL TSH 5.570 H (0.350-5.500) uIU/mL Assessment and Plan Assessment: Acute colitis, patient with no fever or leukocytosis, suspicious for infectious source is low Nausea and vomiting secondary to above Symptomatic bradycardia History of sleeve gastrectomy on 08/19 Hypertension Hypokalemia Hypomagnesemia Plan: Continue with gentle hydration Check echocardiogram GI team evaluation Colonoscopy results noted continue with anti-emetic , currently on riglan and zofran Continue with liquid diet and advance as tolerated per surgery team under the Labs and medication were reviewed.. Continue same treatment. Continue with symptomatic treatment. Resume home medication. Monitor labs and vitals. DVT and GI prophylaxis. Further recommendations as per clinical course of the patient DVT prophylaxis: Subcutaneous heparin GI Prophylaxis: Ppi and Carafate Prognosis is guarded Thank you for consulting us, follow-up
[2022-10-30] MEDS: HYDROmorphone 0.5 MG/0.5 ML SYRINGE IVP PRN (14:14)
[2022-10-30] MEDS: LEVOFLOXACIN 500MG-D5W PMX 500 MG in DEXTROSE/WATER 1 100ML.BAG IVPB SCH (14:16)
--- NOTE | 2022-10-30 15:06 | P.PN ---
Subjective Progress Note Date: 10/30/22 CHIEF COMPLAINT: Dysphagia HISTORY OF PRESENT ILLNESS: Patient continues to feel better. Denies any nausea vomiting. Tolerating diet. Patient reports she is feeling better today. Patient status post colonoscopy which a poor colon prep. And no evidence of GI bleed. Patient denies abdominal pain. Afebrile. WBC 4.3HP 13.3 platelets 166 potassium 3.9 magnesium 2.0 Patient seen and examined with Dr. lee PHYSICAL EXAM: VITAL SIGNS: Reviewed. GENERAL: Well-developed in no acute distress. HEENT: No sclera icterus. Extraocular movements grossly intact. Moist buccal mucosa. Head is atraumatic, normocephalic. ABDOMEN: Soft. Nondistended. NEUROLOGIC: Alert and oriented. Cranial nerves II through XII grossly intact. ASSESSMENT: 1. Colitis with diarrhea 2. Dehydration 3. Nausea and vomiting likely due to electrolyte imbalance 4. Hypokalemia 5. Hypomagnesemia 6. History of sleeve gastrectomy in August 2022 7. Thiamine deficiency. Level low at 14 PLAN: -Continue IV thiamine -Continue regular diet -Continue IV antibiotics for colitis -Continue IV fluids -Anticipate discharge tomorrow -Encouraged patient to increase activity level -DVT prophylaxis subcu heparin Physician Waste Water Worker note has been reviewed by physician. Signing provider agrees with the documented findings, assessment, and plan of care. Objective - Vital Signs Vital signs: Vital Signs Temp 98 F 10/30/22 14:00 Pulse 56 L 10/30/22 14:00 Resp 18 10/30/22 14:00 BP 114/72 10/30/22 14:00 Pulse Ox 96 10/30/22 14:00 FiO2 Intake & Output 10/29/22 10/30/22 10/30/22 18:59 06:59 18:59 Intake Total 360 220 Balance 360 220 Weight 105.687 kg Intake: IV 100 Oral 360 120 Other: Voiding Method Toilet Toilet Toilet # Voids 3 2 - Labs CBC & Chem 7: 10/30/22 05:47 10/30/22 05:47 Labs: Abnormal Lab Results - Last 24 Hours (Table) 10/30/22 10/30/22 Range/Units 05:47 05:47 RDW 16.4 H (11.5-15.5) % Plt Count 136 L (150-450) k/uL Carbon Dioxide 36 H (22-30) mmol/L BUN 6 L (7-17) mg/dL
[2022-10-31] MEDS: HYDROmorphone 0.5 MG/0.5 ML SYRINGE IVP PRN (02:12)
[2022-10-31] MEDS: SODIUM CHLORIDE 0.9% 1,000 ML IV SCH (06:20)
[2022-10-31] MEDS: SUCRALFATE 1 GM TAB PO SCH (06:20)
[2022-10-31] MEDS: PANTOPRAZOLE 40 MG/10 ML VIAL IV SCH (08:33)
[2022-10-31] MEDS: lisinopriL 10 MG TAB PO SCH (08:33)
[2022-10-31] MEDS: THIAMINE 200 MG in SODIUM CHLORIDE 0.9% 100 ML IVPB SCH (08:33)
[2022-10-31 08:36] VITALS: BP 137/80; PULSE 69; RESP 18; TEMP 97.7
[2022-10-31] MEDS: HEPARIN SODIUM,PORCINE/PF 5,000 UNIT/0.5 ML SYRINGE SQ SCH (09:26)
--- NOTE | 2022-10-31 11:05 | P.DS ---
Providers Date of admission: 10/23/22 13:29 Expected date of discharge: 10/31/22 Attending physician: Sincere Armstrong Consults: 10/21/22 12:55 Consult Physician Urgent Consulting Provider: Kiet Peters Consult Reason/Comments: Medical management Do you want consulting provider notified?: Yes Primary care physician: Sonya Hsieh Hospital Course: Discharge diagnosis 1. Colitis with diarrhea 2. Dehydration 3. Nausea and vomiting likely due to thiamine deficiency and electrolyte imbalance 4. Hypokalemia improved 5. Hypomagnesemia improved 6. History of sleeve gastrectomy in August 2022 7. Thiamine deficiency. Level low at 14 status post supplement Hospital course This is a 56-year-old female who presented with nausea and vomiting she had a sleeve gastrectomy in August 2022. Patient reports she had been well but then around [place] she became very ill with the nausea and vomiting. Patient had evidence of dehydration. She had low potassium, magnesium and also thiamine. Likely the thiamine deficiency and electrolyte imbalance was contributing to patient's nausea and vomiting and dehydration. She also had a computed tomography scan of the abdomen and pelvis that showed signs of colitis. Patient was started on antibiotics steroids. She was seen by GI service during this admission. Steroids were discontinued. She had EGD and colonoscopy during this admission. Colonoscopy was a poor bowel prep. The sigmoid colon biopsy was obtained. There is no evidence of GI bleed. Patient had EGD done earlier in her admission and showed antral gastritis. Patient's symptoms had improved with the replacement of the thiamine and electrolytes. Patient is tolerating diet. She has been up and ambulating. She is having bowel movements. She is a febrile. She is stable for discharge. Please refer to chart for any further details. Physician Box Annealer note has been reviewed by physician. Signing provider agrees with the documented findings, assessment, and plan of care. Patient Condition at Discharge: Stable Plan - Discharge Summary New Discharge Prescriptions: Continue Pantoprazole Sodium [Protonix] 40 mg PO DAILY #30 tab Ondansetron Odt [Zofran ODT] 4 mg PO Q8HR PRN #30 tab PRN Reason: Nausea Metoclopramide HCl [Reglan] 10 mg PO Q8H PRN PRN Reason: Nausea And Vomiting Sucralfate [Carafate] 1 gm PO AC-TID #90 tab lisinopriL [Zestril] 10 mg PO DAILY tab Discharge Medication List Ondansetron Odt [Zofran ODT] 4 mg PO Q8HR PRN #30 tab 10/11/22 [Rx] Pantoprazole Sodium [Protonix] 40 mg PO DAILY #30 tab 10/11/22 [Rx] Sucralfate [Carafate] 1 gm PO AC-TID #90 tab 10/11/22 [Rx] lisinopriL [Zestril] 10 mg PO DAILY tab 10/11/22 [Rx] Metoclopramide HCl [Reglan] 10 mg PO Q8H PRN 10/21/22 [History] Follow up Appointment(s)/Referral(s): Sonya Hsieh DO [Primary Care Provider] [facility] [place] [facility] - 11/03/22 1:00 pm Patient Instructions/Handouts: Gastritis (GEN), Acute Abdominal Pain (GEN) Activity/Diet/Wound Care/Special Instructions: Continue multivitamin daily Continue Vitamin B complex daily Discharge Disposition: HOME SELF-CARE
== END 2022-10-31 11:30 | disposition home or self-care (01) | DRG 392 ==
LOC: EC 12:17 → 6NMEDSUR 13:54 → OBSVTOIN 10-23 13:29
PROVIDERS: ADMIT Surgery; ATTEND Surgery
PROC: 0DDP8ZX Extraction of Rectum, Via Natural or Artificial Opening Endoscopic, Diagnostic (ICD-10-PCS; principal; 2022-10-23 10:50)
PROC: 0DD68ZX Extraction of Stomach, Via Natural or Artificial Opening Endoscopic, Diagnostic (ICD-10-PCS; principal; 2022-10-23 10:50)
PROC: 05HF33Z Insertion of Infusion Device into Left Cephalic Vein, Percutaneous Approach (ICD-10-PCS; 2022-10-28 12:00)
PROC: 0DBN8ZX Excision of Sigmoid Colon, Via Natural or Artificial Opening Endoscopic, Diagnostic (ICD-10-PCS; 2022-10-30)
DX: K52.9 Noninfective gastroenteritis and colitis, unspecified (principal); Z68.41 Body mass index [BMI] 40.0-44.9, adult; E87.1 Hypo-osmolality and hyponatremia; E51.9 Thiamine deficiency, unspecified; E86.0 Dehydration; E87.6 Hypokalemia; R13.10 Dysphagia, unspecified; K29.50 Unspecified chronic gastritis without bleeding; K44.9 Diaphragmatic hernia without obstruction or gangrene; R12 Heartburn; R00.1 Bradycardia, unspecified; D53.9 Nutritional anemia, unspecified; K64.4 Residual hemorrhoidal skin tags; A63.0 Anogenital (venereal) warts; I45.10 Unspecified right bundle-branch block; I10 Essential (primary) hypertension; E78.5 Hyperlipidemia, unspecified; E83.42 Hypomagnesemia; G47.30 Sleep apnea, unspecified; M19.012 Primary osteoarthritis, left shoulder; E66.01 Morbid (severe) obesity due to excess calories; Z86.39 Personal history of other endocrine, nutritional and metabolic disease; Z98.84 Bariatric surgery status; Z87.891 Personal history of nicotine dependence; Z79.899 Other long term (current) drug therapy; Z28.310 Unvaccinated for COVID-19; Z71.3 Dietary counseling and surveillance
CPT/HCPCS: 36410; 36415; 43239; 45331; 45380; 74177; 76937; 80048; 80053; 81003; 82150; 83605; 83690; 83735; 84145; 84425; 84439; 84443; 85025; 85027; 85610; 85730; 87324; 88305; 93306; 96361; 96374; 96375; 96376; 99285

== ENCOUNTER → 2022-10-21 | Outpatient (CLI) | payer BC ==
[~2022-10-21] MED LIST changes: -ENOXAPARIN 40 MG/0.4 ML SYRINGE SQ PRN; +SODIUM CHLORIDE 0.9% 1,000 ML IV SCH; -ceFAZolin 3 GM in SODIUM CHLORIDE 0.9% 100 ML IVPB PRN
[2022-10-21 11:57] LABS: Basophils % (A) 0 %; Eosinophils # (A) 0.1 k/uL (0-0.7); Eosinophils % (A) 1 %; HCT 43.3 % (34.0-46.0); HGB 14.6 gm/dL (11.4-16.0); Lymphocytes # (A) 0.9 k/uL (1.0-4.8); Lymphocytes % (A) 12 %; MCH 29.4 pg (25.0-35.0); MCHC 33.6 g/dL (31.0-37.0); MCV 87.5 fL (80.0-100.0); Mean Platelet Volume 8.1; Monocytes # (A) 0.2 k/uL (0-1.0); Monocytes % (A) 3 %; Neutrophils # (A) 6.7 k/uL (1.3-7.7); Neutrophils % (A) 84 %; Platelet Count 218 k/uL (150-450); RBC 4.95 m/uL (3.80-5.40); RDW 15.7 % (11.5-15.5)
[2022-10-21 12:08] LABS: ALT 43 U/L (4-34); AST 29 U/L (14-36); African American GFR (CKD) >90 (>60 ml/min/1.73 sqM); Albumin 3.9 g/dL (3.5-5.0); Alkaline Phosphatase 89 U/L (38-126); Anion Gap 14 mmol/L; Blood Urea Nitrogen 8 mg/dL (7-17); Calcium 8.7 mg/dL (8.4-10.2); Carbon Dioxide 23 mmol/L (22-30); Chloride 99 mmol/L (98-107); Glucose 132 mg/dL (74-99); Non-African American GFR(CKD) >90 (>60 ml/min/1.73 sqM); Sodium 136 mmol/L (137-145); Total Bilirubin 2.1 mg/dL (0.2-1.3); Total Protein 6.8 g/dL (6.3-8.2)
[2022-10-21 12:25] LABS: Potassium 3.5 mmol/L (3.5-5.1)
== END ==
LOC: PROCWHC3 10:37
PROVIDERS: ATTEND Surgery
DX: E86.0 Dehydration (principal)
CPT/HCPCS: 36415; 80053; 85025; 96360

== ENCOUNTER → 2022-10-21 | Outpatient (CLI) | payer BC ==
[2022-10-21 11:16] VITALS: BP 127/86; PULSE 101; TEMP 98.3; BMI 41.3
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
== END ==
LOC: BARWHC3 10:41
PROVIDERS: ATTEND Surgery
DX: E66.01 Morbid (severe) obesity due to excess calories (principal); R13.10 Dysphagia, unspecified; R19.7 Diarrhea, unspecified; E86.0 Dehydration; E11.9 Type 2 diabetes mellitus without complications; E78.5 Hyperlipidemia, unspecified; I10 Essential (primary) hypertension; M19.90 Unspecified osteoarthritis, unspecified site; Z99.89 Dependence on other enabling machines and devices; Z87.891 Personal history of nicotine dependence
CPT/HCPCS: 99211

== ENCOUNTER → 2022-11-03 | Outpatient (CLI) | payer BC ==
[2022-11-03 14:34] VITALS: BP 85/69; PULSE 111; TEMP 98.2; BMI 40.1
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
== END ==
LOC: BARWHC3 12:54
PROVIDERS: ATTEND Surgery
DX: Z71.3 Dietary counseling and surveillance (principal); E66.01 Morbid (severe) obesity due to excess calories; E11.9 Type 2 diabetes mellitus without complications; E78.5 Hyperlipidemia, unspecified; I10 Essential (primary) hypertension; M19.90 Unspecified osteoarthritis, unspecified site; Z87.891 Personal history of nicotine dependence; Z68.41 Body mass index [BMI] 40.0-44.9, adult
CPT/HCPCS: 99211

== ENCOUNTER → 2022-12-15 | Outpatient (CLI) | payer BC ==
[2022-12-15 13:06] VITALS: BP 108/59; PULSE 90; TEMP 98; BMI 38.7
== END ==
LOC: BARWHC3 12:40
PROVIDERS: ATTEND Surgery
DX: E66.01 Morbid (severe) obesity due to excess calories (principal); Z71.3 Dietary counseling and surveillance; Z87.891 Personal history of nicotine dependence; Z98.84 Bariatric surgery status
CPT/HCPCS: 97803; 99211

== ENCOUNTER → 2023-01-19 | Outpatient (CLI) | payer BC ==
[2023-01-19 13:21] VITALS: BP 139/90; PULSE 80; TEMP 98; BMI 35.6
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
== END ==
LOC: BARWHC3 12:34
PROVIDERS: ATTEND Surgery
DX: E66.01 Morbid (severe) obesity due to excess calories (principal); Z98.84 Bariatric surgery status; K21.9 Gastro-esophageal reflux disease without esophagitis; E11.9 Type 2 diabetes mellitus without complications; E78.5 Hyperlipidemia, unspecified; I10 Essential (primary) hypertension; M19.90 Unspecified osteoarthritis, unspecified site; Z87.891 Personal history of nicotine dependence; Z68.35 Body mass index [BMI] 35.0-35.9, adult
CPT/HCPCS: 99211

== ENCOUNTER → 2023-04-27 | Outpatient (CLI) | payer BC ==
[2023-04-27 14:52] VITALS: BMI 32.0
[2023-04-27 15:41] VITALS: BP 125/80; PULSE 55; TEMP 98.2
[2023-04-27 20:05] LABS: HCT 41.9 % (37.2-46.3); HGB 13.2 d/dL (12.0-15.0); MCH 30.6 pg (27.0-32.0); MCHC 31.5 d/dL (32.0-37.0); MCV 97.2 FL (80.0-97.0); Mean Platelet Volume 9.7 FL (9.5-12.2); NRBC Per 100 WBC 0 X 10*3/uL (0.00-0.01); Platelet Count 165 X 10*3/uL (140-440); RBC 4.31 X 10*6/uL (4.10-5.20); RDW 12.8 % (11.5-14.5); WBC 4.36 X 10*3/uL (4.50-10.00)
[2023-04-27 20:25] LABS: % Iron Saturation 16.96 (12.00-45.00); ALT 29 U/L (8-44); AST 36 U/L (13-35); Albumin 4.4 d/dL (3.8-4.9); Alkaline Phosphatase 72 U/L (41-126); Blood Urea Nitrogen 6.8 mg/dL (9.0-27.0); Carbon Dioxide 24.5 mmol/L (21.6-31.8); Chloride 105 mmol/L (96-109); Globulin 2.2 d/dL (1.6-3.3); Glucose 85 mg/dL (70-110); Iron 58 UG/DL (50-170); Magnesium 2.1 mg/dL (1.5-2.4); Potassium 3.4 mmol/L (3.5-5.5); Sodium 143 mmol/L (135-145); Total Iron Binding Capacity 342 UG/DL (228-460); Total Protein 6.6 d/dL (6.2-8.2)
[2023-04-28 09:45] LABS: Zinc, Serum 63 ug/dL (60-130)
[2023-04-29 06:39] LABS: Vit B1(Thiamine) 132 ug/L (38-122)
[2023-04-29 06:55] LABS: Vitamin A 54 ug/dL (38-106)
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
[2023-05-04 07:59] LABS: Selenium 107 mcg/L (63-160)
== END ==
LOC: BARWHC3 13:50
PROVIDERS: ATTEND Surgery
DX: E66.01 Morbid (severe) obesity due to excess calories (principal); K21.9 Gastro-esophageal reflux disease without esophagitis; E11.9 Type 2 diabetes mellitus without complications; E78.5 Hyperlipidemia, unspecified; I10 Essential (primary) hypertension; M19.90 Unspecified osteoarthritis, unspecified site; D50.8 Other iron deficiency anemias; E55.9 Vitamin D deficiency, unspecified; T56.894A Toxic effect of other metals, undetermined, initial encounter; E44.0 Moderate protein-calorie malnutrition; Z71.3 Dietary counseling and surveillance; Z68.32 Body mass index [BMI] 32.0-32.9, adult; Z87.891 Personal history of nicotine dependence
CPT/HCPCS: 80053; 82306; 82607; 82728; 82746; 83540; 83550; 83735; 84255; 84425; 84443; 84590; 84630; 85027; 97803; 99211